=== PATIENT | female | born 2000 | race Caucasian/White ===

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

== ENCOUNTER 2018-05-05 20:54 | Inpatient (IN) | payer MEDICAID ==
[2018-05-05] MEDS ORDERED: Lidocaine 1% 50 ML MDV INJECT ONE (21:59)
[2018-05-05] MEDS ORDERED: Sodium Chloride 0.9% 10 ML Syringe FLUSH PRN (21:59)
[2018-05-05] MEDS ORDERED: Ondansetron 4 MG/2 ML SDV IVPUSH PRN (21:59)
[2018-05-05] MEDS ORDERED: Nalbuphine 20 MG/ML 1 ML Syringe IVPUSH PRN (21:59)
[2018-05-05] MEDS ORDERED: Oxytocin/Lactated Ringers 10 UNIT/1,000 ML BAG IV SCH ×2 (22:00)
--- NOTE | 2018-05-05 22:23 | PCM.LDHP ---
L&D History of Present Illness - General Date of Service: 05/05/18 Admit Problem/Dx: Patient Status Order with Admit Dx/Problem 05/05/18 21:07 Patient Status [ADT] Routine Admission Diagnosis/Problem Admission Diagnosis/Problem Source of Information: Patient History Limitations: Reports: No Limitations - History of Present Illness Introduction:: Patient is a 17 y/o at 38 4/7 wks who presents to L&D with varied concerns of feeling unwell, diarrhea, cramping, and itching of the abdomen/body/hands/ feet. Notes good FM. No headaches, vision changes. 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 In [facility] notes a vaginal delivery of a baby girl in 2015 that was full term. Also notes two losses in 2017. In [facility] system does not have full term delivery noted. Does endorse two losses in 2017 as well. Currently denies prior vaginal delivery) Psychiatric History: Reports: Anxiety, Depression Social & Family History - Family History Family Medical History: Noncontributory - Tobacco Use Smoking Status *Q: Never Smoker - Caffeine Use Caffeine Use: Reports: Coffee, Soda Other Caffeine Use: daily - Alcohol Use Alcohol Use History: No - Recreational Drug Use Recreational Drug Use: No - Living Situation & Occupation Living situation: Reports: Single, with Family Occupation: Employed ([employer]) H&P Review of Systems - Review of Systems: Review Of Systems: See Below General: Reports: No Symptoms Pulmonary: Reports: No Symptoms Cardiovascular: Reports: No Symptoms Gastrointestinal: Reports: No Symptoms Genitourinary: Reports: No Symptoms Musculoskeletal: Reports: No Symptoms Psychiatric: Reports: No Symptoms Neurological: Reports: No Symptoms L&D Exam - Exam Exam: See Below - Vital Signs Weight: 92.986 kg - OB Specific Contraction Intensity: Irritability Movement: Active Heart Tones: Present Heart Tones per Min: 145 Heart Rate (FHR) Variability: Moderate (6-25 bmp) Presentation: Vertex - Muñoz Score Muñoz Score Cervix Position: Midposition Muñoz Score Consistency: Soft Muñoz Score Effacement: 51-70% Muñoz Score Dilation: 3-4 cm Muñoz Score 's Station: -2 Muñoz Score Total: 8 - Exam General: Alert, Oriented, Cooperative Lungs: Clear to Auscultation, Normal Respiratory Effort Cardiovascular: Regular Rate, Regular Rhythm GI/Abdominal Exam: Soft, Non-Tender Genitourinary: Normal external exam Extremities: Normal Inspection, Pedal Edema Skin: Warm, Dry, Intact - Patient Data Lab Results Last 24 hrs: Laboratory Results - last 24 hr 05/05/18 Range/Units 21:33 Urine Color Yellow (Yellow) Urine Appearance Clear (Clear) Urine pH 6.5 (5.0-8.0) Ur Specific [place] 1.015 (1.005-1.030) Urine Protein 3+ H (Negative) Urine Glucose (UA) Negative (Negative) Urine Ketones Negative (Negative) Urine Occult Blood Negative (Negative) Urine Nitrite Negative (Negative) Urine Bilirubin Negative (Negative) Urine Urobilinogen 0.2 (0.2-1.0) Ur Leukocyte Esterase 1+ H (Negative) Urine RBC 0-5 (0-5) /hpf Urine WBC 5-10 H (0-5) /hpf Urine WBC Clumps Rare (NOT SEEN) /hpf Ur Epithelial Cells Not Reportable Ur Squamous Epith Cells 5-10 H (0-5) /hpf Urine Bacteria Few (FEW) /hpf Urine Mucus Rare H (FEW) /hpf Result Diagrams: 05/05/18 22:40 05/05/18 22:40 - Problem List (1) 38 weeks gestation of SNOMED Code(s): 25615448 ICD Code: Z3A.38 - 38 WEEKS GESTATION OF Status: Acute Current Visit: Yes (2) Preeclampsia SNOMED Code(s): 841159089 ICD Code: O14.90 - UNSPECIFIED PRE-ECLAMPSIA, UNSPECIFIED TRIMESTER Status : Acute Current Visit: Yes Qualifiers: Trimester: third trimester Qualified Code(s): O14.93 - Unspecified pre- eclampsia, third trimester (3) Solar pruritus SNOMED Code(s): 600927557 ICD Code: L29.9 - PRURITUS, UNSPECIFIED Status: Acute Current Visit: Yes Problem List Initiated/Reviewed/Updated: Yes Orders Last 24hrs: Active Orders 24 hr Category Date Time Status Patient Status [ADT] Routine ADT 05/05/18 21:07 Active Non Stress Test [RC] PER UNIT ROUTINE Care 05/05/18 21:07 Active Vital Signs [RC] PER UNIT ROUTINE Care 05/05/18 21:07 Active Resuscitation Status Routine Resus Stat 05/05/18 21:07 Ordered Assessment/Plan Comment:: 17 y/o at 38 4/7 wks. Multiple mild range BP's. Labs done and normal other than elevated urine protein to creatinine ratio. Will plan IOL. Will start with pitocin and then AROM as able. GBS negative, no need for antibiotics. Pain management per patient preference. Will also order bile acids as patient complaints of itching of palms/soles. Lastly will order UDS given patient confusing Ob/history and several other comments made throughout interview.
[2018-05-05] MEDS: Lactated Ringers 1,000 ML IV SCH (23:30)
[2018-05-06] MEDS ORDERED: ePHEDrine 50 MG/ML SDV IVPUSH PRN (06:48)
[2018-05-06] MEDS ORDERED: fentaNYL 100 MCG/2 ML SDV IVPUSH PRN (06:48)
[2018-05-06] MEDS ORDERED: diphenhydrAMINE 50 MG/ML SDV IVPUSH PRN (06:48)
[2018-05-06] MEDS ORDERED: Ondansetron 4 MG/2 ML SDV IVPUSH PRN (06:48)
[2018-05-06] MEDS ORDERED: fentaNYL 100 MCG/2 ML SDV EPIDUR PRN (06:57)
[2018-05-06] MEDS ORDERED: fentaNYL/Bupivacaine-NS 2 MCG/ML-0.125%/PF 100 ML Bag EPIDUR SCH (07:00)
[2018-05-06] MEDS: Lactated Ringers 1,000 ML IV SCH (07:17)
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
--- NOTE | 2018-05-06 11:31 | PCM.DEL ---
L & D Note - General Info Date of Service: 05/06/18 - Delivery Note Labor: Induced by ARM, Induced by Oxytocin Delivery Outcome: Livebirth Infant Delivery Method: Spontaneous Vaginal Delivery-Single Delivery Mode: Spontaneous Presentation: Right Occiput Anterior (PHONG) Nuchal Cord: Present, Reduced Anesthesia Type: Epidural Amniotic Fluid Description: Clear Episiotomy Type: None Laceration: 2nd Degree, Perineal Suture type: Vicryl Suture size: 2-0 Placenta: Intact, Spontaneous Cord: 3 Vessels Estimated Blood Loss: 200 Resuscitation Needed: Yes : Bulb Syringe, Stimulated, Warmed, Fenton Used, Warmer Used Delivery Comments (Free Text/Narrative):: Patient found to be complete and began pushing. With maternal pushing effort head delivered from PHONG presentation. Nuchal cord present and reduced. With gentle downward traction the shoulders and body delivered. placed on maternal abdomen. Cord clamped and cut. Baby handed to awaiting dynamite reclaimer. Cord blood collected. Placenta allowed time to separate and expelled intact. Inspection of the perineum showed a 2nd degree laceration which was repaired with a 2-0 vicryl in the typical fashion. - General Info Date of Service: 05/06/18 - Patient Data Vitals - Most Recent: Last Vital Signs Temp 37.2 C 05/05/18 22:30 Pulse 87 05/05/18 22:30 Resp 15 05/06/18 07:47 BP 146/89 H 05/05/18 22:30 Pulse Ox 98 05/06/18 07:47 Weight - Most Recent: 92.986 kg Lab Results Last 24 Hours: Laboratory Results - last 24 hr 05/05/18 05/05/18 05/05/18 Range/Units 21:00 21:33 21:33 WBC (3.98-10.04) K/mm3 RBC (3.98-5.22) M/mm3 Hgb (11.2-15.7) gm/L Hct (34.1-44.9) % MCV (79.4-94.8) fl MCH (25.6-32.2) pg MCHC (32.2-35.5) g/dl RDW Std Deviation (36.4-46.3) fL Plt Count (182-369) K/mm3 MPV (9.4-12.3) fl Neut % (Auto) (34.0-71.1) % Lymph % (Auto) (19.3-51.7) % [place] % (Auto) (4.7-12.5) % Eos % (Auto) (0.7-5.8) Baso % (Auto) (0.1-1.2) % Neut # (Auto) (1.56-6.13) K/mm3 Lymph # (Auto) (1.18-3.74) K/mm3 [place] # (Auto) (0.24-0.36) K/mm3 Eos # (Auto) (0.04-0.36) K/mm3 Baso # (Auto) (0.01-0.08) K/mm3 Creatinine (0.55-1.02) mg/dL Est Cr Clr Drug Dosing mL/min Estimated GFR (MDRD) (>60) mL/min AST (15-37) U/L ALT (14-59) U/L Urine Color Yellow (Yellow) Urine Appearance Clear (Clear) Urine pH 6.5 (5.0-8.0) Ur Specific [place] 1.015 (1.005-1.030) Urine Protein 3+ H (Negative) Urine Glucose (UA) Negative (Negative) Urine Ketones Negative (Negative) Urine Occult Blood Negative (Negative) Urine Nitrite Negative (Negative) Urine Bilirubin Negative (Negative) Urine Urobilinogen 0.2 (0.2-1.0) Ur Leukocyte Esterase 1+ H (Negative) Urine RBC 0-5 (0-5) /hpf Urine WBC 5-10 H (0-5) /hpf Urine WBC Clumps Rare (NOT SEEN) /hpf Ur Epithelial Cells Not Reportable Ur Squamous Epith Cells 5-10 H (0-5) /hpf Urine Bacteria Few (FEW) /hpf Urine Mucus Rare H (FEW) /hpf Ur Random Creatinine 54.8 (30.0-125.0) mg/dL U Random Total Protein 130.2 H (0.0-11.8) mg/dL Protein/Creatinin Ratio 2375.9 H (0-149) mg/g Urine Opiates Screen Negative (YFADTW=533) Ur Buprenorphine Scrn Negative (CUTOFF=10) Ur Oxycodone Screen Negative (YUT6RW=604) Urine Methadone Screen Negative (DQCXLR=793) Ur Propoxyphene Screen Negative (RWAOJJ=685) Ur Barbiturates Screen Negative (PGJPOH=683) Ur Tricyclics Screen Negative (SSHNUV=304) Ur Phencyclidine Scrn Negative (CUTOFF=25) Ur Amphetamine Screen Negative (GMYTTW=972) U Methamphetamines Scrn Negative (DFPQED=098) U Benzodiazepines Scrn Negative (XYUXAA=830) U Cocaine Metab Screen Negative (FLWZQX=513) U Marijuana (THC) Screen Negative (CUTOFF=50) 05/05/18 05/05/18 05/05/18 Range/Units 22:40 22:40 22:40 WBC 9.83 (3.98-10.04) K/mm3 RBC 4.33 (3.98-5.22) M/mm3 Hgb 10.2 L (11.2-15.7) gm/L Hct 32.9 L (34.1-44.9) % MCV 76.0 L (79.4-94.8) fl MCH 23.6 L (25.6-32.2) pg MCHC 31.0 L (32.2-35.5) g/dl RDW Std Deviation 41.9 (36.4-46.3) fL Plt Count 284 (182-369) K/mm3 MPV 10.1 (9.4-12.3) fl Neut % (Auto) 67.1 (34.0-71.1) % Lymph % (Auto) 23.8 (19.3-51.7) % [place] % (Auto) 7.4 (4.7-12.5) % Eos % (Auto) 0.8 (0.7-5.8) Baso % (Auto) 0.2 (0.1-1.2) % Neut # (Auto) 6.59 H (1.56-6.13) K/mm3 Lymph # (Auto) 2.34 (1.18-3.74) K/mm3 [place] # (Auto) 0.73 H (0.24-0.36) K/mm3 Eos # (Auto) 0.08 (0.04-0.36) K/mm3 Baso # (Auto) 0.02 (0.01-0.08) K/mm3 Creatinine 0.7 (0.55-1.02) mg/dL Est Cr Clr Drug Dosing 106.93 mL/min Estimated GFR (MDRD) > 60 (>60) mL/min AST 18 (15-37) U/L ALT 17 (14-59) U/L Urine Color (Yellow) Urine Appearance (Clear) Urine pH (5.0-8.0) Ur Specific [place] (1.005-1.030) Urine Protein (Negative) Urine Glucose (UA) (Negative) Urine Ketones (Negative) Urine Occult Blood (Negative) Urine Nitrite (Negative) Urine Bilirubin (Negative) Urine Urobilinogen (0.2-1.0) Ur Leukocyte Esterase (Negative) Urine RBC (0-5) /hpf Urine WBC (0-5) /hpf Urine WBC Clumps (NOT SEEN) /hpf Ur Epithelial Cells Ur Squamous Epith Cells (0-5) /hpf Urine Bacteria (FEW) /hpf Urine Mucus (FEW) /hpf Ur Random Creatinine (30.0-125.0) mg/dL U Random Total Protein (0.0-11.8) mg/dL Protein/Creatinin Ratio (0-149) mg/g Urine Opiates Screen (FDZISH=591) Ur Buprenorphine Scrn (CUTOFF=10) Ur Oxycodone Screen (YMH5MB=876) Urine Methadone Screen (YGKALS=238) Ur Propoxyphene Screen (RNXOVC=801) Ur Barbiturates Screen (ITNQOT=134) Ur Tricyclics Screen (WUTGIY=944) Ur Phencyclidine Scrn (CUTOFF=25) Ur Amphetamine Screen (UJUQKO=307) U Methamphetamines Scrn (XFUZRN=665) U Benzodiazepines Scrn (BOORHP=148) U Cocaine Metab Screen (MSVJWJ=513) U Marijuana (THC) Screen (CUTOFF=50) Med Orders - Current: Current Medications Diphenhydramine HCl (Benadryl) 25 mg IVPUSH Q6H PRN PRN Reason: Pruritis Ephedrine Sulfate (Ephedrine Sulfate) 5 mg IVPUSH ASDIRECTED PRN PRN Reason: Hypotension Fentanyl (Sublimaze) 50 mcg IVPUSH Q5M PRN PRN Reason: Pain Fentanyl (Sublimaze) 100 mcg EPIDUR ONETIME PRN PRN Reason: Pain Last Admin: 05/06/18 07:29 Dose: 100 mcg Fentanyl/Bupivacaine HCl (Uvzknesy-Twguq-Gm 2 Mcg/Ml-0.125%) 100 ml EPIDUR ASDIRECTED THELMA Last Admin: 05/06/18 07:28 Dose: 100 ml Lactated Ringer's (Ringers, Lactated) 1,000 mls @ 100 mls/hr IV ASDIRECTED THELMA Last Admin: 05/06/18 07:17 Dose: 999 mls/hr Oxytocin/Lactated Ringer's (Pitocin In Lr 10 Units/1,000 Ml) 10 unit in 1,000 mls @ 12 mls/hr IV TITRATE THELMA; Protocol Last Titration: 05/06/18 05:37 Dose: 16 munits/min, 96 mls/hr Oxytocin/Lactated Ringer's (Pitocin In Lr 10 Units/1,000 Ml) 10 unit in 1,000 mls @ 500 mls/hr IV .CONTINUOUS THELMA Last Admin: 05/06/18 11:23 Dose: 500 mls/hr Nalbuphine HCl (Nubain) 10 mg IVPUSH Q2H PRN PRN Reason: pain Ondansetron HCl (Zofran) 4 mg IVPUSH Q4H PRN PRN Reason: Nausea/Vomiting Ondansetron HCl (Zofran) 4 mg IVPUSH ONETIME PRN PRN Reason: Nausea/Vomiting Sodium Chloride (Saline Flush) 10 ml FLUSH ASDIRECTED PRN PRN Reason: Keep Vein Open Discontinued Medications Lidocaine HCl (Xylocaine 1%) 50 ml INJECT ONETIME ONE Stop: 05/05/18 22:00 - Problem List & Annotations (1) 38 weeks gestation of SNOMED Code(s): 91466162 Code(s): Z3A.38 - 38 WEEKS GESTATION OF Status: Acute Current Visit: Yes (2) Preeclampsia SNOMED Code(s): 244339179 Code(s): O14.90 - UNSPECIFIED PRE-ECLAMPSIA, UNSPECIFIED TRIMESTER Status: Acute Current Visit: Yes Qualifiers: Trimester: third trimester Qualified Code(s): O14.93 - Unspecified pre- eclampsia, third trimester (3) Solar pruritus SNOMED Code(s): 907522033 Code(s): L29.9 - PRURITUS, UNSPECIFIED Status: Acute Current Visit: Yes (4) Vaginal delivery SNOMED Code(s): 373433580 Code(s): O80 - ENCOUNTER FOR FULL-TERM UNCOMPLICATED DELIVERY Status: Acute Current Visit: Yes - Problem List Review Problem List Initiated/Reviewed/Updated: Yes - My Orders Last 24 Hours: My Active Orders 05/05/18 21:07 Patient Status [ADT] Routine Vital Signs [RC] 09,15,21,03 Resuscitation Status Routine 05/05/18 21:59 Nalbuphine [Nubain] 10 mg IVPUSH Q2H PRN Ondansetron [Zofran] 4 mg IVPUSH Q4H PRN Sodium Chloride 0.9% [Saline Flush] 10 ml FLUSH ASDIRECTED PRN 05/05/18 22:00 Patient Status [ADT] Routine Activity as Tolerated [RC] PFP Communication Order [RC] ASDIRECTED Heart Tones [RC] ASDIRECTED Notify Provider [RC] PFP Notify Provider [RC] PRN Peripheral IV Care [RC] . DIRECTED Lactated Ringers [Ringers, Lactated] 1,000 ml IV ASDIRECTED Oxytocin/Lactated Ringers [Pitocin in LR 10 Units/1,000 ML] 10 unit in 1,000 ml IV .CONTINUOUS Oxytocin/Lactated Ringers [Pitocin in LR 10 Units/1,000 ML] 10 unit in 1,000 ml IV TITRATE Electronic Heart Tones Ext w TOCO [WOMSER] Routine Electronic Heart Tones Internal [WOMSER] Per Unit Routine Peripheral IV Insertion Adult [OM.PC] Routine 05/05/18 22:40 RAPID PLASMA REAGIN,RPR [CHEM] Routine - Assessment Assessment:: 17 y/o now PPD#0 from at 38 5/7 wks - Plan Plan:: * Routine cares * Encourage bottle feeding * Discharge home in 1-2 days
[2018-05-06] MEDS ORDERED: Docusate Sodium 100 MG Cap PO PRN (13:49)
[2018-05-06] MEDS ORDERED: Acetaminophen 325 MG Tab PO PRN (13:49)
[2018-05-06] MEDS ORDERED: Lanolin 100% Cream 7 GM Tube TOP PRN (13:49)
[2018-05-06] MEDS: Witch Hazel Medicated Pads 40/Jar TOP PRN (13:58)
[2018-05-06] MEDS: Benzocaine/Menthol 20%-0.5% Spray 56 GM Canister TOP PRN (13:59)
[2018-05-06] MEDS: Ibuprofen 600 MG Tab PO PRN (14:00)
[2018-05-06] MEDS ORDERED: Bupivacaine 0.25% 10 ML SDV ONE (16:00)
[2018-05-06] MEDS ORDERED: Lidocaine 1.5% with EPINEPHrine 1:200,000 5 ML Amp ONE (16:00)
[2018-05-07] MEDS: Ibuprofen 600 MG Tab PO PRN ×2 (03:46→17:40)
--- NOTE | 2018-05-07 04:27 | PCM.PNPP ---
- General Info Date of Service: 05/07/18 Functional Status: Reports: Pain Controlled, Tolerating Diet, Ambulating, Urinating - Review of Systems General: Reports: No Symptoms Pulmonary: Reports: No Symptoms Cardiovascular: Reports: No Symptoms Gastrointestinal: Reports: No Symptoms Genitourinary: Reports: No Symptoms Musculoskeletal: Reports: No Symptoms Neurological: Reports: No Symptoms - Patient Data Vital Signs - Most Recent: Last Vital Signs Temp 37.3 C 05/06/18 20:05 Pulse 89 05/06/18 20:05 Resp 14 05/06/18 20:05 BP 122/76 05/06/18 20:05 Pulse Ox 98 05/06/18 20:05 Weight - Most Recent: 92.986 kg I&O - Last 24 Hours: Intake & Output 05/06/18 05/06/18 05/07/18 14:59 22:59 06:59 Intake Total 3000 Balance 3000 Lab Results - Last 24 Hours: Laboratory Results - last 24 hr 05/05/18 05/05/18 Range/Units 21:00 22:40 Urine Opiates Screen Negative (FHGSNW=631) Ur Buprenorphine Scrn Negative (CUTOFF=10) Ur Oxycodone Screen Negative (BUE5FY=405) Urine Methadone Screen Negative (RLXPCQ=563) Ur Propoxyphene Screen Negative (RDMYHH=610) Ur Barbiturates Screen Negative (UJKVIN=897) Ur Tricyclics Screen Negative (NKGADS=508) Ur Phencyclidine Scrn Negative (CUTOFF=25) Ur Amphetamine Screen Negative (PGGPSB=937) U Methamphetamines Scrn Negative (OZZGYE=583) U Benzodiazepines Scrn Negative (FGKBVG=374) U Cocaine Metab Screen Negative (OYWIBS=034) U Marijuana (THC) Screen Negative (CUTOFF=50) RPR Non-reactive (NONREACTIVE) Med Orders - Current: Current Medications Acetaminophen (Tylenol) 650 mg PO Q4H PRN PRN Reason: mild pain or fever Last Admin: 05/07/18 03:48 Dose: 650 mg Benzocaine/Menthol (Dermoplast Pain Relief [place]) 0 gm TOP ASDIRECTED PRN PRN Reason: Perineal Comfort Measure Last Admin: 05/06/18 13:59 Dose: 1 spray Docusate Sodium (Colace) 100 mg PO BID PRN PRN Reason: Constipation Emollient Ointment (Lansinoh Hpa) 0 gm TOP ASDIRECTED PRN PRN Reason: Sore Nipples Ibuprofen (Motrin) 600 mg PO Q6H PRN PRN Reason: Mild pain or fever Last Admin: 05/07/18 03:46 Dose: 600 mg Witch Theodora (Tucks) 1 pad TOP ASDIRECTED PRN PRN Reason: Pain Last Admin: 05/06/18 13:58 Dose: 1 pad Discontinued Medications Diphenhydramine HCl (Benadryl) 25 mg IVPUSH Q6H PRN PRN Reason: Pruritis Ephedrine Sulfate (Ephedrine Sulfate) 5 mg IVPUSH ASDIRECTED PRN PRN Reason: Hypotension Fentanyl (Sublimaze) 50 mcg IVPUSH Q5M PRN PRN Reason: Pain Fentanyl (Sublimaze) 100 mcg EPIDUR ONETIME PRN PRN Reason: Pain Last Admin: 05/06/18 07:29 Dose: 100 mcg Fentanyl/Bupivacaine HCl (Nllkrhot-Ywdbw-Jr 2 Mcg/Ml-0.125%) 100 ml EPIDUR ASDIRECTED THELMA Last Admin: 05/06/18 07:28 Dose: 100 ml Lactated Ringer's (Ringers, Lactated) 1,000 mls @ 100 mls/hr IV ASDIRECTED THELMA Last Admin: 05/06/18 07:17 Dose: 999 mls/hr Oxytocin/Lactated Ringer's (Pitocin In Lr 10 Units/1,000 Ml) 10 unit in 1,000 mls @ 12 mls/hr IV TITRATE THELMA; Protocol Last Titration: 05/06/18 05:37 Dose: 16 munits/min, 96 mls/hr Oxytocin/Lactated Ringer's (Pitocin In Lr 10 Units/1,000 Ml) 10 unit in 1,000 mls @ 500 mls/hr IV .CONTINUOUS THELMA Last Admin: 05/06/18 11:23 Dose: 500 mls/hr Lidocaine HCl (Xylocaine 1%) 50 ml INJECT ONETIME ONE Stop: 05/05/18 22:00 Last Admin: 05/06/18 22:53 Dose: Not Given Nalbuphine HCl (Nubain) 10 mg IVPUSH Q2H PRN PRN Reason: pain Ondansetron HCl (Zofran) 4 mg IVPUSH Q4H PRN PRN Reason: Nausea/Vomiting Ondansetron HCl (Zofran) 4 mg IVPUSH ONETIME PRN PRN Reason: Nausea/Vomiting Sodium Chloride (Saline Flush) 10 ml FLUSH ASDIRECTED PRN PRN Reason: Keep Vein Open - Infant Interaction Disposition, : in Room with Family Interaction: Holding Infant Infant Feeding: Bottle Fed Support Person: Mother, Significant Other - Recovery Exam Fundal Tone: Firm Fundal Level: 1 Fingerbreadths Below Umbilicus Fundal Placement: Midline Lochia Amount: Small Lochia Color: Rubra/Red Perineum Description: Other (see below) Other Perinuem Description: 2nd deg lac with repair Episiotomy/Laceration: Approximated Bladder Status: Voiding Urinary Elimination: Voided - Exam General: Alert, Oriented, Cooperative GI/Abdominal Exam: Soft, Non-Tender Extremities: Normal Inspection Skin: Warm, Dry, Intact - Problem List & Annotations (1) 38 weeks gestation of SNOMED Code(s): 67044969 Code(s): Z3A.38 - 38 WEEKS GESTATION OF Status: Acute Current Visit: Yes (2) Preeclampsia SNOMED Code(s): 559041491 Code(s): O14.90 - UNSPECIFIED PRE-ECLAMPSIA, UNSPECIFIED TRIMESTER Status: Acute Current Visit: Yes Qualifiers: Trimester: third trimester Qualified Code(s): O14.93 - Unspecified pre- eclampsia, third trimester (3) Solar pruritus SNOMED Code(s): 664959771 Code(s): L29.9 - PRURITUS, UNSPECIFIED Status: Acute Current Visit: Yes (4) Vaginal delivery SNOMED Code(s): 425115112 Code(s): O80 - ENCOUNTER FOR FULL-TERM UNCOMPLICATED DELIVERY Status: Acute Current Visit: Yes - Problem List Review Problem List Initiated/Reviewed/Updated: Yes - My Orders Last 24 Hours: My Active Orders 05/06/18 13:49 Activity as Tolerated [RC] PER UNIT ROUTINE Vital Signs [RC] 03,09,15,21 Acetaminophen [Tylenol] 650 mg PO Q4H PRN Benzocaine/Menthol [Dermoplast Pain Relief [place]] See Dose Instructions TOP ASDIRECTED PRN Docusate Sodium [Colace] 100 mg PO BID PRN Ibuprofen [Motrin] 600 mg PO Q6H PRN Lanolin [Lansinoh HPA] See Dose Instructions TOP ASDIRECTED PRN Witch Theodora [Tucks] 1 pad TOP ASDIRECTED PRN Assess Lochia [WOMSER] Per Unit Routine Assess Uterine Involution [WOMSER] Per Unit Routine Breast Pump [WOMSER] Per Unit Routine Heat Therapy [OM.PC] PRN Ice Therapy [OM.PC] Per Unit Routine Perineal Care [OM.PC] Per Unit Routine Peripheral IV Discontinue [OM.PC] Routine Sitz Bath [OM.PC] Per Unit Routine 05/06/18 Lunch Regular Diet [DIET] 05/07/18 13:49 Heat Therapy [OM.PC] PRN - Assessment Assessment:: 17 y/o now PPD#1 from at 38 5/7 wks - Plan Plan:: * Routine cares * Encourage bottle feeding * Discharge home likely tomorrow
--- NOTE | 2018-05-07 10:06 | PCM48HPAN ---
Post Anesthesia Note - EVALUATION WITHIN 48HRS OF ANESTHETIC Vital Signs in Normal Range: Yes Patient Participated in Evaluation: Yes Respiratory Function Stable: Yes Airway Patent: Yes Cardiovascular Function Stable: Yes Hydration Status Stable: Yes Pain Control Satisfactory: Yes Nausea and Vomiting Control Satisfactory: Yes Mental Status Recovered: Yes
[2018-05-08] MEDS: Ibuprofen 600 MG Tab PO PRN (03:37)
--- NOTE | 2018-05-08 06:49 | PCM.PNPP ---
- General Info Date of Service: 05/08/18 Functional Status: Reports: Pain Controlled, Tolerating Diet, Ambulating, Urinating - Review of Systems General: Reports: No Symptoms Pulmonary: Reports: No Symptoms Cardiovascular: Reports: No Symptoms Gastrointestinal: Reports: No Symptoms Genitourinary: Reports: No Symptoms Musculoskeletal: Reports: No Symptoms Neurological: Reports: No Symptoms - Patient Data Vital Signs - Most Recent: Last Vital Signs Temp 37.1 C 05/08/18 04:59 Pulse 99 05/08/18 03:16 Resp 14 05/08/18 03:16 BP 126/59 L 05/08/18 03:16 Pulse Ox 98 05/08/18 03:16 Weight - Most Recent: 92.986 kg I&O - Last 24 Hours: Intake & Output 05/07/18 05/07/18 05/08/18 14:59 22:59 06:59 Intake Total 120 300 Balance 120 300 Med Orders - Current: Current Medications Acetaminophen (Tylenol) 650 mg PO Q4H PRN PRN Reason: mild pain or fever Last Admin: 05/07/18 03:48 Dose: 650 mg Benzocaine/Menthol (Dermoplast Pain Relief [place]) 0 gm TOP ASDIRECTED PRN PRN Reason: Perineal Comfort Measure Last Admin: 05/06/18 13:59 Dose: 1 spray Docusate Sodium (Colace) 100 mg PO BID PRN PRN Reason: Constipation Last Admin: 05/08/18 03:37 Dose: 100 mg Emollient Ointment (Lansinoh Hpa) 0 gm TOP ASDIRECTED PRN PRN Reason: Sore Nipples Ibuprofen (Motrin) 600 mg PO Q6H PRN PRN Reason: Mild pain or fever Last Admin: 05/08/18 03:37 Dose: 600 mg Witch Theodora (Tucks) 1 pad TOP ASDIRECTED PRN PRN Reason: Pain Last Admin: 05/06/18 13:58 Dose: 1 pad Discontinued Medications Bupivacaine HCl (Sensorcaine-Mpf 0.25%) 10 ml .ROUTE .STK-MED ONE Stop: 05/06/18 16:01 Diphenhydramine HCl (Benadryl) 25 mg IVPUSH Q6H PRN PRN Reason: Pruritis Ephedrine Sulfate (Ephedrine Sulfate) 5 mg IVPUSH ASDIRECTED PRN PRN Reason: Hypotension Fentanyl (Sublimaze) 50 mcg IVPUSH Q5M PRN PRN Reason: Pain Fentanyl (Sublimaze) 100 mcg EPIDUR ONETIME PRN PRN Reason: Pain Last Admin: 05/06/18 07:29 Dose: 100 mcg Fentanyl/Bupivacaine HCl (Lqscbwdh-Hyfis-Nm 2 Mcg/Ml-0.125%) 100 ml EPIDUR ASDIRECTED THELMA Last Admin: 05/06/18 07:28 Dose: 100 ml Lactated Ringer's (Ringers, Lactated) 1,000 mls @ 100 mls/hr IV ASDIRECTED THELMA Last Admin: 05/06/18 07:17 Dose: 999 mls/hr Oxytocin/Lactated Ringer's (Pitocin In Lr 10 Units/1,000 Ml) 10 unit in 1,000 mls @ 12 mls/hr IV TITRATE THELMA; Protocol Last Titration: 05/06/18 05:37 Dose: 16 munits/min, 96 mls/hr Oxytocin/Lactated Ringer's (Pitocin In Lr 10 Units/1,000 Ml) 10 unit in 1,000 mls @ 500 mls/hr IV .CONTINUOUS THELMA Last Admin: 05/06/18 11:23 Dose: 500 mls/hr Lidocaine HCl (Xylocaine 1%) 50 ml INJECT ONETIME ONE Stop: 05/05/18 22:00 Last Admin: 05/06/18 22:53 Dose: Not Given Lidocaine/Epinephrine (Xylocaine-Mpf 1.5% W/Epinephrine 1:200,000) 5 ml .ROUTE .STK-MED ONE Stop: 05/06/18 16:01 Nalbuphine HCl (Nubain) 10 mg IVPUSH Q2H PRN PRN Reason: pain Ondansetron HCl (Zofran) 4 mg IVPUSH Q4H PRN PRN Reason: Nausea/Vomiting Ondansetron HCl (Zofran) 4 mg IVPUSH ONETIME PRN PRN Reason: Nausea/Vomiting Sodium Chloride (Saline Flush) 10 ml FLUSH ASDIRECTED PRN PRN Reason: Keep Vein Open - Interaction Disposition, : Graff in Room with Family Interaction: Holding Infant Infant Feeding: Bottle Fed Infant Support Person: Mother, Significant Other - Recovery Exam Fundal Tone: Firm Fundal Level: 1 Fingerbreadths Below Umbilicus Fundal Placement: Midline Lochia Amount: Small Lochia Color: Rubra/Red Perineum Description: Other (see below) Other Perinuem Description: 2nd degree lac with repair Episiotomy/Laceration: None Bladder Status: Voiding Urinary Elimination: Voided - Exam General: Alert, Oriented, Cooperative GI/Abdominal Exam: Soft, Non-Tender Extremities: Normal Inspection - Problem List & Annotations (1) 38 weeks gestation of SNOMED Code(s): 58050171 Code(s): Z3A.38 - 38 WEEKS GESTATION OF Status: Acute (2) Preeclampsia SNOMED Code(s): 961816051 Code(s): O14.90 - UNSPECIFIED PRE-ECLAMPSIA, UNSPECIFIED TRIMESTER Status: Acute Qualifiers: Trimester: third trimester Qualified Code(s): O14.93 - Unspecified pre- eclampsia, third trimester (3) Solar pruritus SNOMED Code(s): 374282120 Code(s): L29.9 - PRURITUS, UNSPECIFIED Status: Acute (4) Vaginal delivery SNOMED Code(s): 959571224 Code(s): O80 - ENCOUNTER FOR FULL-TERM UNCOMPLICATED DELIVERY Status: Acute - Problem List Review Problem List Initiated/Reviewed/Updated: Yes - My Orders Last 24 Hours: My Active Orders 05/07/18 13:49 Heat Therapy [OM.PC] PRN 05/08/18 06:49 Ready for Discharge [RC] PER UNIT ROUTINE - Assessment Assessment:: 17 y/o now PPD#2 from at 38 5/7 wks - Plan Plan:: * Routine cares * Encourage bottle feeding * BP's have been normal to mild range. Will have patient follow up in 1 week for BP check * Discharge home today
--- NOTE | 2018-05-08 06:50 | PCM.DCSUM1 ---
Discharge Summary - Discharge Data Discharge Date: 05/08/18 Discharge Disposition: Home, Self-Care 01 Condition: Good - Discharge Diagnosis/Problem(s) (1) 38 weeks gestation of SNOMED Code(s): 54053695 ICD Code: Z3A.38 - 38 WEEKS GESTATION OF Status: Acute (2) Preeclampsia SNOMED Code(s): 366077665 ICD Code: O14.90 - UNSPECIFIED PRE-ECLAMPSIA, UNSPECIFIED TRIMESTER Status : Acute Qualifiers: Trimester: third trimester Qualified Code(s): O14.93 - Unspecified pre- eclampsia, third trimester (3) Solar pruritus SNOMED Code(s): 040487538 ICD Code: L29.9 - PRURITUS, UNSPECIFIED Status: Acute (4) Vaginal delivery SNOMED Code(s): 140698033 ICD Code: O80 - ENCOUNTER FOR FULL-TERM UNCOMPLICATED DELIVERY Status: Acute - Patient Summary/Data Complications: None Consults: None Recommended Follow-up Testing/Procedures: Follow up in 1 week for BP check Hospital Course: 17 y/o at 38 4/7 wks who presented to L&D with several varied complaints. She was found to have multiple mild range BP's. For this reason she was advised to stay for IOL. This was done wtih pitocin and eventual AROM. She progressed well and underwent an uncomplicated . See delivery note. she did well and BP's remained normal to mild range. She was discharged home on PPD#2 - Patient Instructions Diet: Regular Diet as Tolerated Activity: As Tolerated Activity, Other: Pelvic Rest for 6 weeeks Driving: May Drive Today Showering/Bathing: May Shower Showering/Bathing, Other: May Bathe Notify Provider of: Fever, Increased Pain, Swelling and Redness, Drainage, Nausea and/or Vomiting - Discharge Plan *PRESCRIPTION DRUG MONITORING PROGRAM REVIEWED*: Not Applicable *COPY OF PRESCRIPTION DRUG MONITORING REPORT IN PATIENT MUNA: Not Applicable Home Medications: Home Meds [id number]/FA/Omega3/Dha/Fish Oil [ Gummies] 1 tab PO DAILY 01/16/18 [ History] Docusate Sodium [Colace] 100 mg PO BID PRN cap 05/08/18 [Rx] Ibuprofen [Motrin] 600 mg PO Q6H PRN tablet 05/08/18 [Rx] Patient Handouts: What You Need to Know About Electronic Cigarettes, Vaginal Delivery, Care After Referrals: Costa Kaminski MD [Physician] - (1-2 weeks for BP check / PP check ) - Discharge Summary/Plan Comment DC Time >30 min.: No - Patient Data Vitals - Most Recent: Last Vital Signs Temp 37.1 C 05/08/18 04:59 Pulse 99 05/08/18 03:16 Resp 14 05/08/18 03:16 BP 126/59 L 05/08/18 03:16 Pulse Ox 98 05/08/18 03:16 Weight - Most Recent: 92.986 kg I&O - Last 24 hours: Intake & Output 05/07/18 05/07/18 05/08/18 14:59 22:59 06:59 Intake Total 120 300 Balance 120 300 Med Orders - Current: Current Medications Acetaminophen (Tylenol) 650 mg PO Q4H PRN PRN Reason: mild pain or fever Last Admin: 05/07/18 03:48 Dose: 650 mg Benzocaine/Menthol (Dermoplast Pain Relief [place]) 0 gm TOP ASDIRECTED PRN PRN Reason: Perineal Comfort Measure Last Admin: 05/06/18 13:59 Dose: 1 spray Docusate Sodium (Colace) 100 mg PO BID PRN PRN Reason: Constipation Last Admin: 05/08/18 03:37 Dose: 100 mg Emollient Ointment (Lansinoh Hpa) 0 gm TOP ASDIRECTED PRN PRN Reason: Sore Nipples Ibuprofen (Motrin) 600 mg PO Q6H PRN PRN Reason: Mild pain or fever Last Admin: 05/08/18 03:37 Dose: 600 mg Witch Theodora (Tucks) 1 pad TOP ASDIRECTED PRN PRN Reason: Pain Last Admin: 05/06/18 13:58 Dose: 1 pad Discontinued Medications Bupivacaine HCl (Sensorcaine-Mpf 0.25%) 10 ml .ROUTE .STK-MED ONE Stop: 05/06/18 16:01 Diphenhydramine HCl (Benadryl) 25 mg IVPUSH Q6H PRN PRN Reason: Pruritis Ephedrine Sulfate (Ephedrine Sulfate) 5 mg IVPUSH ASDIRECTED PRN PRN Reason: Hypotension Fentanyl (Sublimaze) 50 mcg IVPUSH Q5M PRN PRN Reason: Pain Fentanyl (Sublimaze) 100 mcg EPIDUR ONETIME PRN PRN Reason: Pain Last Admin: 05/06/18 07:29 Dose: 100 mcg Fentanyl/Bupivacaine HCl (Bxqgedny-Vrqsd-Du 2 Mcg/Ml-0.125%) 100 ml EPIDUR ASDIRECTED THELMA Last Admin: 05/06/18 07:28 Dose: 100 ml Lactated Ringer's (Ringers, Lactated) 1,000 mls @ 100 mls/hr IV ASDIRECTED THELMA Last Admin: 05/06/18 07:17 Dose: 999 mls/hr Oxytocin/Lactated Ringer's (Pitocin In Lr 10 Units/1,000 Ml) 10 unit in 1,000 mls @ 12 mls/hr IV TITRATE THELMA; Protocol Last Titration: 05/06/18 05:37 Dose: 16 munits/min, 96 mls/hr Oxytocin/Lactated Ringer's (Pitocin In Lr 10 Units/1,000 Ml) 10 unit in 1,000 mls @ 500 mls/hr IV .CONTINUOUS THELMA Last Admin: 05/06/18 11:23 Dose: 500 mls/hr Lidocaine HCl (Xylocaine 1%) 50 ml INJECT ONETIME ONE Stop: 05/05/18 22:00 Last Admin: 05/06/18 22:53 Dose: Not Given Lidocaine/Epinephrine (Xylocaine-Mpf 1.5% W/Epinephrine 1:200,000) 5 ml .ROUTE .STK-MED ONE Stop: 05/06/18 16:01 Nalbuphine HCl (Nubain) 10 mg IVPUSH Q2H PRN PRN Reason: pain Ondansetron HCl (Zofran) 4 mg IVPUSH Q4H PRN PRN Reason: Nausea/Vomiting Ondansetron HCl (Zofran) 4 mg IVPUSH ONETIME PRN PRN Reason: Nausea/Vomiting Sodium Chloride (Saline Flush) 10 ml FLUSH ASDIRECTED PRN PRN Reason: Keep Vein Open
[2018-05-08] MEDS: Witch Hazel Medicated Pads 40/Jar TOP PRN (08:28)
[2018-05-08] MEDS: Benzocaine/Menthol 20%-0.5% Spray 56 GM Canister TOP PRN (08:28)
[2018-05-08 10:09] VITALS: BP 131/90
== END 2018-05-08 10:00 | disposition home or self-care (01) | DRG 806 ==
LOC: JD.OBCHECK 20:54 → JD.OB 20:58 → JD.OBCHECK 22:00 → JD.OB 22:00 → OBSVTOIN 05-06 11:00 → JD.OB 05-06 11:01
PROVIDERS: ADMIT Obstetrics & Gynecology; ATTEND Obstetrics & Gynecology
PROC: 10907ZC Drainage of Amniotic Fluid, Therapeutic from Products of Conception, Via Natural or Artificial Opening (ICD-10-PCS; principal; 2018-05-06)
PROC: 3E033VJ Introduction of Other Hormone into Peripheral Vein, Percutaneous Approach (ICD-10-PCS; principal; 2018-05-06)
PROC: 6A550ZT Pheresis of Cord Blood Stem Cells, Single (ICD-10-PCS; principal; 2018-05-06)
PROC: 10E0XZZ Delivery of Products of Conception, External Approach (ICD-10-PCS; principal; 2018-05-06)
PROC: 0KQM0ZZ Repair Perineum Muscle, Open Approach (ICD-10-PCS; principal; 2018-05-06)
PROC: 00HU33Z Insertion of Infusion Device into Spinal Canal, Percutaneous Approach (ICD-10-PCS; 2018-05-06)
PROC: 3E0R3BZ Introduction of Anesthetic Agent into Spinal Canal, Percutaneous Approach (ICD-10-PCS; 2018-05-06)
DX: O14.94 Unspecified pre-eclampsia, complicating childbirth (principal); O99.354 Diseases of the nervous system complicating childbirth; Z37.0 Single live birth; G43.909 Migraine, unspecified, not intractable, without status migrainosus; Z3A.38 38 weeks gestation of pregnancy; O69.81X0 Labor and delivery complicated by cord around neck, without compression, not applicable or unspecified; O70.1 Second degree perineal laceration during delivery; O77.0 Labor and delivery complicated by meconium in amniotic fluid; O99.62 Diseases of the digestive system complicating childbirth; K21.9 Gastro-esophageal reflux disease without esophagitis; O99.344 Other mental disorders complicating childbirth; F41.9 Anxiety disorder, unspecified; F32.9 Major depressive disorder, single episode, unspecified; O99.72 Diseases of the skin and subcutaneous tissue complicating childbirth; L29.8 Other pruritus; Z87.440 Personal history of urinary (tract) infections; Z91.018 Allergy to other foods; Z87.11 Personal history of peptic ulcer disease
CPT/HCPCS: 01967; 36415; 51702; 59025; 59409; 80306; 81001; 82565; 82570; 84156; 84450; 84460; 85025; 86592; A9270-GY; J2590; J3010; J3490; J7120

== ENCOUNTER 2018-08-03 12:16 | Emergency (ER) | payer MEDICAID ==
[2018-08-03 12:30] VITALS: BP 124/78
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
== END 2018-08-03 13:45 | disposition home or self-care (01) ==
LOC: JD.ED 12:16
DX: N76.4 Abscess of vulva (principal); Z88.6 Allergy status to analgesic agent; Z91.018 Allergy to other foods
CPT/HCPCS: 99282; 99283

== ENCOUNTER 2018-09-26 19:16 | Emergency (ER) | payer MEDICAID ==
[2018-09-26 19:55] VITALS: BP 127/71
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
[2018-09-26] MEDS ORDERED: Ibuprofen 600 MG Tab PO ONE (21:15)
--- NOTE | 2018-09-27 08:11 | CR ---
Right knee: Four views of the right knee were obtained. Comparison: No previous knee exam. No joint effusion is seen. Medial and lateral joint compartments are maintained in height. No fracture, dislocation or other bony abnormality is seen. Impression: 1. No abnormality is identified on right knee exam. Diagnostic code #1
== END 2018-09-26 22:12 | disposition home or self-care (01) ==
LOC: JD.ED 19:16
DX: S83.91XA Sprain of unspecified site of right knee, initial encounter (principal); Z91.018 Allergy to other foods; Z79.82 Long term (current) use of aspirin; X50.1XXA Overexertion from prolonged static or awkward postures, initial encounter
CPT/HCPCS: 73564; 99283; A9270; 99282

== ENCOUNTER 2018-09-29 12:09 | Emergency (ER) | payer SELFPAY ==
[2018-09-29 12:25] VITALS: BP 131/78
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
[2018-09-29] MEDS ORDERED: Ketorolac 60 MG/2 ML SDV IM ONE (12:42)
== END 2018-09-29 13:01 | disposition home or self-care (01) ==
LOC: JD.ED 12:09
DX: K02.9 Dental caries, unspecified (principal); Z88.6 Allergy status to analgesic agent; Z91.02 Food additives allergy status
CPT/HCPCS: 96372; 99282; J1885; 99283

== ENCOUNTER 2018-10-10 09:56 | Emergency (ER) | payer SELFPAY ==
[2018-10-10 10:15] VITALS: BP 136/77
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
[2018-10-10] MEDS ORDERED: Ketorolac 60 MG/2 ML SDV IM ONE (10:34)
== END 2018-10-10 10:43 | disposition home or self-care (01) ==
LOC: JD.ED 09:56
DX: K02.9 Dental caries, unspecified (principal); Z88.6 Allergy status to analgesic agent; Z91.018 Allergy to other foods
CPT/HCPCS: 96372; 99282; J1885

== ENCOUNTER 2018-10-12 15:25 | Emergency (ER) | payer SELFPAY ==
[2018-10-12 15:52] VITALS: BP 150/124
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
[2018-10-12] MEDS ORDERED: Ketorolac 60 MG/2 ML SDV IM ONE (16:26)
[2018-10-12] MEDS ORDERED: Ondansetron 4 MG Tab.DIS PO ONE (16:26)
== END 2018-10-12 17:17 | disposition home or self-care (01) ==
LOC: JD.ED 15:25
DX: K02.9 Dental caries, unspecified (principal); R11.10 Vomiting, unspecified; Z88.8 Allergy status to other drugs, medicaments and biological substances; Z91.018 Allergy to other foods; Z79.899 Other long term (current) drug therapy
CPT/HCPCS: 96372; 99283; A9270; J1885

== ENCOUNTER 2018-11-21 18:53 | Emergency (ER) | payer SELFPAY ==
[2018-11-21 19:12] VITALS: BP 125/80; PULSE 89
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
== END 2018-11-21 19:56 | disposition home or self-care (01) ==
LOC: JD.ED 18:53
DX: H60.501 Unspecified acute noninfective otitis externa, right ear (principal); Z88.6 Allergy status to analgesic agent; Z91.018 Allergy to other foods
CPT/HCPCS: 99282; 99283

== ENCOUNTER 2019-02-02 19:14 | Emergency (ER) | payer OTHER ==
[2019-02-02 19:36] VITALS: BP 124/78; PULSE 88
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
== END 2019-02-02 21:10 | disposition home or self-care (01) ==
LOC: JD.ED 19:14
DX: J06.9 Acute upper respiratory infection, unspecified (principal); Z91.018 Allergy to other foods; Z88.6 Allergy status to analgesic agent
CPT/HCPCS: 81001; 81025; 87081; 87086; 87430; 87804; 99281; 99283

== ENCOUNTER 2019-02-25 15:12 | Emergency (ER) | payer SELFPAY ==
[2019-02-25 15:31] VITALS: BP 124/66; PULSE 89
[2019-02-25] MEDS ORDERED: Lidocaine 1% 10 ML MDV ONE (15:48)
[2019-02-25] MEDS ORDERED: Lidocaine 1% 10 ML MDV INJECT ONE (15:49)
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
[2019-02-25] MEDS ORDERED: Sulfamethoxazole/Trimethoprim 800-160 MG Tab PO ONE (16:27)
== END 2019-02-25 17:04 | disposition home or self-care (01) ==
LOC: JD.ED 15:12
DX: L02.211 Cutaneous abscess of abdominal wall (principal); Z88.8 Allergy status to other drugs, medicaments and biological substances; Z91.018 Allergy to other foods
CPT/HCPCS: 10061; 81025; 87070; 87077; 87186; 99283; A9270; J2001

== ENCOUNTER 2019-05-17 22:53 | Emergency (ER) | payer SELFPAY ==
[2019-05-17 23:08] VITALS: BP 128/78; PULSE 86
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
== END 2019-05-18 01:05 | disposition home or self-care (01) ==
LOC: JD.ED 22:53
DX: N93.9 Abnormal uterine and vaginal bleeding, unspecified (principal); N30.01 Acute cystitis with hematuria; D50.9 Iron deficiency anemia, unspecified; Z91.018 Allergy to other foods
CPT/HCPCS: 36415; 81001; 84703; 85025; 99283; 99284

== ENCOUNTER 2019-09-27 16:00 | Emergency (ER) | payer SELFPAY ==
[2019-09-27 17:03] VITALS: BP 132/92; PULSE 110
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
== END 2019-09-27 20:30 | disposition home or self-care (01) ==
LOC: JD.ED 16:00
DX: J06.9 Acute upper respiratory infection, unspecified (principal); Z91.018 Allergy to other foods; Z20.828 Contact with and (suspected) exposure to other viral communicable diseases
CPT/HCPCS: 36415; 84702; 99282; 99283; U0002

== ENCOUNTER 2020-01-05 11:30 | Emergency (ER) | payer SELFPAY ==
[2020-01-05 11:45] VITALS: BP 125/83; PULSE 95
[2020-01-05] MEDS ORDERED: Sodium Chloride 0.9% 10 ML Syringe FLUSH PRN (11:57)
[2020-01-05] MEDS ORDERED: Ondansetron 4 MG/2 ML SDV IVPUSH ONE (12:00)
[2020-01-05] MEDS ORDERED: Sodium Chloride 0.9% 1,000 ML IV ONE (12:00)
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
--- NOTE | 2020-01-06 13:08 | US ---
PROCEDURE INFORMATION: Exam: US , Transvaginal Exam date and time: 01/05/2020 12:26 PM Age: 19 years old Clinical indication: Lmp or gestational age (in weeks): Working joselyn not provided; Antepartum complications; Other: Abd cramping; TECHNIQUE: Imaging protocol: Real-time transvaginal obstetrical ultrasound of the maternal pelvis and a first trimester with image documentation. Transvaginal imaging was used for better evaluation of the fetus, adnexa, and/or cervix. COMPARISON: US OB 2 Or 3 Tri Sgl 1st Gest 12/26/2017 2:17 PM FINDINGS: BIOMETRY: Gestational age (AUA): A single live intrauterine is identified with mean sac diameter estimated the gestational age to be 6 weeks 5 days. Yolk sac is identified. heart tones are present at 136 bpm. [place]-rump length estimates the gestational age to be 7 weeks 0 days. MATERNAL: Right adnexa: The right ovary measures 3.1 x 1.7 x 2.8 cm and contains a 1.9 x 1.9 x 1.8 cm corpus luteum cyst. Left adnexa: The left ovary is normal in appearance measuring 3.1 x 1.4 x 2.2 cm. IMPRESSION: 1. Single live intrauterine identified. [place]-rump length estimates the gestational age to be 7 weeks 0 days. 2. 1.9 cm corpus luteum cyst on the right. Thank you for allowing us to participate in the care of your patient. Dictated and Authenticated by: Florentin Daniels MD 01/05/2020 2:29 PM Central Time ([place] & [place]) [facility] HOSPITALFatimah
--- NOTE | 2020-01-06 13:14 | US ---
PROCEDURE INFORMATION: Exam: US Abdomen, Limited; Appendix Exam date and time: 01/05/2020 12:53 PM Age: 19 years old Clinical indication: Abdominal pain; Other: RLQ; TECHNIQUE: Imaging protocol: US abdomen. Real time ultrasound with image documentation. Limited exam focused on the appendix. COMPARISON: CT Abdomen Pelvis w Cont 09/07/2016 2:23 AM FINDINGS: Appendix: The appendix is not seen as a discrete structure due to overlying bowel gas. No secondary signs of appendicitis identified. IMPRESSION: The appendix could not be visualized. No secondary signs of appendicitis are identified. However, appendicitis cannot be entirely excluded. Thank you for allowing us to participate in the care of your patient. Dictated and Authenticated by: Florentin Daniels MD 01/05/2020 2:31 PM Central Time ([place] & [place]) [facility]
== END 2020-01-05 14:15 | disposition home or self-care (01) ==
LOC: JD.ED 11:30
DX: O99.891 Other specified diseases and conditions complicating pregnancy (principal); R10.31 Right lower quadrant pain; R10.32 Left lower quadrant pain; O21.9 Vomiting of pregnancy, unspecified; O99.211 Obesity complicating pregnancy, first trimester; Z91.018 Allergy to other foods; Z3A.01 Less than 8 weeks gestation of pregnancy
CPT/HCPCS: 36415; 76705; 76817; 80053; 84702; 85025; 86140; 86900; 86901; 96374; 99284; J2405; J7030

== ENCOUNTER 2020-08-02 07:05 | Inpatient (IN) | payer MEDICAID ==
[~2020-08-02 07:05] MED LIST: Bupivacaine 0.25% 10 ML SDV ONE; ePHEDrine 50 MG/ML SDV ONE
[2020-08-02] MEDS ORDERED: Nalbuphine 10 MG/1 ML Vial IVPUSH PRN (07:28)
[2020-08-02] MEDS ORDERED: Ondansetron 4 MG/2 ML SDV IVPUSH PRN ×2 (07:28→10:59)
[2020-08-02] MEDS ORDERED: Calcium Carbonate 500 MG Tab.Chew PO PRN (07:28)
[2020-08-02] MEDS ORDERED: Sodium Chloride 0.9% 10 ML Syringe FLUSH PRN (07:28)
[2020-08-02] MEDS ORDERED: Oxytocin/Lactated Ringers 10 UNIT/1,000 ML BAG IV SCH ×2 (07:30→15:52)
[2020-08-02] MEDS: Lactated Ringers 1,000 ML IV SCH ×3 (07:59→11:54)
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
[2020-08-02] MEDS ORDERED: ePHEDrine 50 MG/ML SDV IVPUSH PRN (10:59)
[2020-08-02] MEDS ORDERED: fentaNYL 100 MCG/2 ML SDV EPIDUR PRN (10:59)
[2020-08-02] MEDS ORDERED: Bupivacaine/fentaNYL/NS 100 ML Bag EPIDUR SCH (11:00)
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
[2020-08-02] MEDS ORDERED: fentaNYL 100 MCG/2 ML SDV ONE ×2 (11:08→19:12)
--- NOTE | 2020-08-02 15:33 | PCM.DEL ---
L & D Note - General Info Date of Service: 08/02/20 Mother's Due Date: 08/23/20 - Delivery Note Labor: Augmented by ARM, Augmented by Oxytocin Delivery Outcome: Livebirth Presentation: Right Occiput Anterior (PHONG) Nuchal Cord: None Prep: Povidone-Iodine (Betadine Anesthesia Type: Epidural Amniotic Fluid Description: Clear Episiotomy Type: None Laceration: 1st Degree (midline perineal, hemostatic, not repaired) Placenta: Intact, Spontaneous Cord: 3 Vessels Estimated Blood Loss: 250 Resuscitation Needed: Yes [place]: Bulb Syringe, Stimulated, Warmed, [place] Used, Warmer Used Provider: Can Kerns Score 1 min: 6 Score 5 min: 9 Second Stage Interventions: Reports: Pushing Effectively, Pushing, Stirrups/Leg Supports Delivery Comments (Free Text/Narrative):: Stage I: Tonya Santiago was admitted for medically indicated induction of labor in the setting of gestational hypertension. On admission her cervix was dilated to 5.5 cm. She was GBS negative. She was started on Pitocin for induction of labor. She had artificial rupture of membranes with return of clear fluid. She was given an epidural for anesthesia. She progressed to complete and pushing. Stage II: On 08/02/2020 she had a normal vaginal delivery of a live male infant at 14:40. Apgars of 6 & 9. Weight of 3190 g (7 lbs 0.5 oz). Length of 20.5 inches. There was no nuchal cord. was delivered in PHONG position. The cord was doubly clamped and cut by myself. was placed on mother's abdomen and then taken to the warmer for additional resuscitation. Stage III: She had a spontaneous delivery of an intact placenta in Pamela presentation. Three vessel cord. She was given pitocin and fundal massage. She had a first-degree midline perineal laceration that was hemostatic and not repaired. Mom and baby were stable to recovery. I was called back into the room approximately 15 minutes after delivery of the placenta due to additional bleeding. On exam there was approximately 75 cc of blood clot removed from the lower uterine segment. Patient had no additional bleeding after removal of this blood clot. EBL of 250 mL. Costa Kaminski MD 3:31 PM 08/02/2020 Induction Criteria - Muñoz Score Muñoz Score Dilation: > 5 cm (5.5 cm) Muñoz Score Effacement: >80% Muñoz Score Infant's Station: -3 Muñoz Score Consistency: Soft Muñoz Score Cervix Position: Midposition Muñoz Score Total: 9 Muñoz Score Presenting Part: Reports: Cephalic - Induction Gestational Age >/= 39 wks: No Medical Indication: Gestational hypertension diagnosed at 36 weeks gestational age Estimated Pelvis: Reports: Adequate Reassuring Monitoring Strip: Yes Absence of Tachy Systole: Yes - Augmentation Estimated Pelvis: Reports: Adequate Weight Estimated:: Reports: AGA Reassuring Monitoring Strip: Yes Absence of Tachy Systole: Yes - General Info Date of Service: 08/02/20 - Patient Data Vitals - Most Recent: Last Vital Signs Temp 37.2 C 08/02/20 07:24 Pulse Resp 14 08/02/20 07:24 BP 118/78 08/02/20 07:24 Pulse Ox 95 08/02/20 07:24 Weight - Most Recent: 102.512 kg Lab Results Last 24 Hours: Laboratory Results - last 24 hr 08/02/20 08/02/20 08/02/20 Range/Units 07:30 07:46 07:46 WBC 9.00 (3.98-10.04) K/mm3 RBC 4.38 (3.98-5.22) M/mm3 Hgb 10.6 L (11.2-15.7) gm/dl Hct 34.0 L (34.1-44.9) % MCV 77.6 L (79.4-94.8) fl MCH 24.2 L (25.6-32.2) pg MCHC 31.2 L (32.2-35.5) g/dl RDW Std Deviation 41.9 (36.4-46.3) fL Plt Count 289 (182-369) K/mm3 MPV 9.8 (9.4-12.3) fl Neut % (Auto) 71.3 H (34.0-71.1) % Lymph % (Auto) 20.2 (19.3-51.7) % [place] % (Auto) 6.9 (4.7-12.5) % Eos % (Auto) 0.7 (0.7-5.8) Baso % (Auto) 0.2 (0.1-1.2) % Neut # (Auto) 6.42 H (1.56-6.13) K/mm3 Lymph # (Auto) 1.82 (1.18-3.74) K/mm3 [place] # (Auto) 0.62 H (0.24-0.36) K/mm3 Eos # (Auto) 0.06 (0.04-0.36) K/mm3 Baso # (Auto) 0.02 (0.01-0.08) K/mm3 Sodium (136-145) mEq/L Potassium (3.5-5.1) mEq/L Chloride (98-107) mEq/L Carbon Dioxide (21-32) mEq/L Anion Gap (5-15) BUN (7-18) mg/dL Creatinine (0.55-1.02) mg/dL Est Cr Clr Drug Dosing mL/min Estimated GFR (MDRD) (>60) mL/min BUN/Creatinine Ratio (14-18) Glucose (70-99) mg/dL Calcium (8.5-10.1) mg/dL Total Bilirubin (0.2-1.0) mg/dL AST (15-37) U/L ALT (14-59) U/L Alkaline Phosphatase (46-116) U/L Lactate Dehydrogenase (81-234) U/L Total Protein (6.4-8.2) g/dl Albumin (3.4-5.0) g/dl Globulin gm/dL Albumin/Globulin Ratio (1-2) Ur Random Creatinine (30.0-125.0) mg/dL U Random Total Protein (0.0-11.8) mg/dL Protein/Creatinin Ratio (0-149) mg/g RPR Non-reactive (NONREACTIVE) SARS-CoV-2 RNA (WEI) Negative (NEGATIVE) 08/02/20 08/02/20 Range/Units 07:46 09:15 WBC (3.98-10.04) K/mm3 RBC (3.98-5.22) M/mm3 Hgb (11.2-15.7) gm/dl Hct (34.1-44.9) % MCV (79.4-94.8) fl MCH (25.6-32.2) pg MCHC (32.2-35.5) g/dl RDW Std Deviation (36.4-46.3) fL Plt Count (182-369) K/mm3 MPV (9.4-12.3) fl Neut % (Auto) (34.0-71.1) % Lymph % (Auto) (19.3-51.7) % [place] % (Auto) (4.7-12.5) % Eos % (Auto) (0.7-5.8) Baso % (Auto) (0.1-1.2) % Neut # (Auto) (1.56-6.13) K/mm3 Lymph # (Auto) (1.18-3.74) K/mm3 [place] # (Auto) (0.24-0.36) K/mm3 Eos # (Auto) (0.04-0.36) K/mm3 Baso # (Auto) (0.01-0.08) K/mm3 Sodium 142 (136-145) mEq/L Potassium 3.9 (3.5-5.1) mEq/L Chloride 107 (98-107) mEq/L Carbon Dioxide 18 L (21-32) mEq/L Anion Gap 20.9 H (5-15) BUN 9 (7-18) mg/dL Creatinine 0.7 (0.55-1.02) mg/dL Est Cr Clr Drug Dosing 109.78 mL/min Estimated GFR (MDRD) > 60 (>60) mL/min BUN/Creatinine Ratio 12.9 L (14-18) Glucose 88 (70-99) mg/dL Calcium 9.1 (8.5-10.1) mg/dL Total Bilirubin 0.3 (0.2-1.0) mg/dL AST 13 L (15-37) U/L ALT 11 L (14-59) U/L Alkaline Phosphatase 157 H (46-116) U/L Lactate Dehydrogenase 135 (81-234) U/L Total Protein 6.9 (6.4-8.2) g/dl Albumin 2.6 L (3.4-5.0) g/dl Globulin 4.3 gm/dL Albumin/Globulin Ratio 0.6 L (1-2) Ur Random Creatinine 86.9 (30.0-125.0) mg/dL U Random Total Protein 10.9 (0.0-11.8) mg/dL Protein/Creatinin Ratio 125.4 (0-149) mg/g RPR (NONREACTIVE) SARS-CoV-2 RNA (WEI) (NEGATIVE) Med Orders - Current: Current Medications Calcium Carbonate/Glycine (Calcium Carbonate 500 Mg Tab.Chew) 1,000 mg PO Q2H PRN PRN Reason: Indigestion Ephedrine Sulfate (Ephedrine 50 Mg/Ml Sdv) 5 mg IVPUSH ASDIRECTED PRN PRN Reason: Hypotension Last Admin: 08/02/20 11:52 Dose: 5 mg Documented by: Fentanyl (Fentanyl 100 Mcg/2 Ml Sdv) 100 mcg EPIDUR Q3H PRN PRN Reason: Pain Last Admin: 08/02/20 11:10 Dose: 100 mcg Documented by: Fentanyl/Bupivacaine HCl (Bupivacaine/Fentanyl/Ns 100 Ml Bag) 100 ml EPIDUR ASDIRECTED THELMA Last Admin: 08/02/20 11:10 Dose: 100 ml Documented by: Oxytocin/Lactated Ringer's (Pitocin In Lr 10 Units/1,000 Ml) 10 unit in 1,000 mls @ 12 mls/hr IV TITRATE THELMA; Protocol Last Titration: 08/02/20 14:09 Dose: 16 munits/min, 96 mls/hr Documented by: Lactated Ringer's (Ringers, Lactated) 1,000 mls @ 100 mls/hr IV ASDIRECTED THELMA Last Admin: 08/02/20 11:54 Dose: 999 mls/hr Documented by: Miscellaneous Medication (Phenylephrine Hcl In 0.9% Nacl 1 Mg/10 Ml Syringe) 0.1 mg IVPUSH Q10M PRN PRN Reason: Hypotension Nalbuphine HCl (Nalbuphine 10 Mg/1 Ml Vial) 10 mg IVPUSH Q2H PRN PRN Reason: Pain Ondansetron HCl (Ondansetron 4 Mg/2 Ml Sdv) 4 mg IVPUSH Q4H PRN PRN Reason: Nausea/Vomiting Last Admin: 08/02/20 13:18 Dose: 4 mg Documented by: Ondansetron HCl (Ondansetron 4 Mg/2 Ml Sdv) 4 mg IVPUSH ONETIME PRN PRN Reason: Nausea/Vomiting Sodium Chloride (Sodium Chloride 0.9% 10 Ml Syringe) 10 ml FLUSH ASDIRECTED PRN PRN Reason: Keep Vein Open Discontinued Medications Fentanyl (Fentanyl 100 Mcg/2 Ml Sdv) Confirm Administered Dose 100 mcg .ROUTE .STK-MED ONE Stop: 08/02/20 11:09 Last Admin: 08/02/20 11:11 Dose: Not Given Documented by: - Exam Urinary Catheter Total Time: 0Days 2Hours - Problem List & Annotations (1) 37 weeks gestation of SNOMED Code(s): 50389542 Code(s): Z3A.37 - 37 WEEKS GESTATION OF Status: Acute Current Visit: Yes (2) Gestational hypertension SNOMED Code(s): 450887610 Code(s): O13.9 - GESTATIONAL HTN W/O SIGNIFICANT PROTEINURIA, UNSP TRIMESTER Status: Acute Current Visit: Yes (3) History of depression SNOMED Code(s): 941595167 Code(s): Z86.59 - PERSONAL HISTORY OF OTHER MENTAL AND BEHAVIORAL DISORDERS Status: Acute Current Visit: Yes (4) First degree perineal laceration during delivery SNOMED Code(s): 438657909 Code(s): O70.0 - FIRST DEGREE PERINEAL LACERATION DURING DELIVERY Status: Acute Current Visit: Yes - Problem List Review Problem List Initiated/Reviewed/Updated: Yes - My Orders Last 24 Hours: My Active Orders 08/02/20 Breakfast Regular Diet [DIET] 08/02/20 07:28 Calcium Carbonate [Tums] 1,000 mg PO Q2H PRN Nalbuphine [Nubain] 10 mg IVPUSH Q2H PRN Ondansetron [Zofran] 4 mg IVPUSH Q4H PRN Sodium Chloride 0.9% [Saline Flush] 10 ml FLUSH ASDIRECTED PRN Resuscitation Status Routine 08/02/20 07:29 Patient Status [ADT] Routine Activity as Tolerated [RC] PFP Communication Order [RC] ASDIRECTED Notify Provider [RC] PFP Notify Provider [RC] PRN Vital Signs [RC] 03,,, Electronic Heart Tones Ext w TOCO [WOMSER] Routine Electronic Heart Tones Internal [WOMSER] Per Unit Routine Peripheral IV Insertion Adult [OM.PC] Routine 08/02/20 07:30 Lactated Ringers [Ringers, Lactated] 1,000 ml IV ASDIRECTED Oxytocin/Lactated Ringers [Pitocin in LR 10 Units/1,000 ML] 10 unit in 1,000 ml IV TITRATE 08/02/20 07:31 Peripheral IV Care [RC] . DIRECTED 08/02/20 07:46 HEPATITIS B SURFACE AG [CHEM] Routine RUBELLA ANTIBODY IGG [CHEM] Routine 08/02/20 09:27 HIV 1/2 AB [REF] Routine 08/02/20 15:10 Patient Status Manage Transfer [TRANSFER] Routine - Plan Plan:: Tonya Santiago is a 19-year-old G4 now P2-0-2-2 female status post , PPD #0 complicated by gestational hypertension, gastroesophageal reflux disorder and history of depression Admit to inpatient following normal spontaneous vaginal delivery Continue Pitocin per unit protocol following delivery of placenta and lactated Ringer's until tolerating regular diet Regular diet Vitals per unit routine Ibuprofen and Tylenol for pain control Assist with breast-feeding as needed Continue to monitor lochia Anticipate discharge home on day #1 Costa Kaminski MD 3:31 PM 08/02/2020
[2020-08-02] MEDS ORDERED: Magnesium Hydroxide 400 MG/5 ML Susp 30 ML Cup PO PRN (15:52)
[2020-08-02] MEDS ORDERED: Acetaminophen 325 MG Tab PO PRN (15:52)
[2020-08-02] MEDS ORDERED: Hydrocortisone Acetate 25 MG Supp RECTAL PRN (15:52)
[2020-08-02] MEDS ORDERED: Docusate Sodium 100 MG Cap PO PRN (15:52)
[2020-08-02] MEDS: Ibuprofen 600 MG Tab PO PRN (16:22)
[2020-08-02] MEDS: Benzocaine/Menthol 20%-0.5% Spray 56 GM Canister TOP PRN (16:23)
[2020-08-02] MEDS: Witch Hazel Medicated Pads 40/Jar TOP PRN (16:23)
[2020-08-03] MEDS ORDERED: Ferrous Sulfate 324 MG Tab.EC PO SCH (07:00)
--- NOTE | 2020-08-03 08:58 | PCM48HPAN ---
Post Anesthesia Note - EVALUATION WITHIN 48HRS OF ANESTHETIC Vital Signs in Normal Range: Yes Patient Participated in Evaluation: Yes Respiratory Function Stable: Yes Airway Patent: Yes Cardiovascular Function Stable: Yes Hydration Status Stable: Yes Pain Control Satisfactory: Yes Nausea and Vomiting Control Satisfactory: Yes Mental Status Recovered: Yes Vital Signs: Last Vital Signs Temp 97.9 F 08/03/20 03:37 Pulse 76 08/03/20 03:37 Resp 14 08/03/20 03:37 BP 117/71 08/03/20 03:37 Pulse Ox 98 08/03/20 03:37
[2020-08-03] MEDS ORDERED: Prenatal Multivitamin with Calcium/Folic Acid/Iron Tab PO SCH (09:00)
--- NOTE | 2020-08-03 12:07 | PCM.DCSUM1 ---
Discharge Summary - Hospital Course Free Text/Narrative:: Tonya Santiago is a 19-year-old G4 para 2-0-2-2 at 37 weeks 0 days ([place] 08/23/2020) by a 7-week ultrasound who presented for induction of labor in the setting of gestational hypertension. She underwent induction of labor. She had delivery on 08/02/2020. Stage I: Tonya Santiago was admitted for medically indicated induction of labor in the setting of gestational hypertension. On admission her cervix was dilated to 5.5 cm. She was GBS negative. She was started on Pitocin for induction of labor. She had artificial rupture of membranes with return of clear fluid. She was given an epidural for anesthesia. She progressed to complete and pushing. Stage II: On 08/02/2020 she had a normal vaginal delivery of a live male at 14:40. Apgars of 6 & 9. Weight of 3190 g (7 lbs 0.5 oz). Length of 20.5 inches. There was no nuchal cord. was delivered in PHONG position. The cord was doubly clamped and cut by myself. Infant was placed on mother's abdomen and then taken to the warmer for additional resuscitation. Stage III: She had a spontaneous delivery of an intact placenta in Pamela presentation. Three vessel cord. She was given pitocin and fundal massage. She had a first-degree midline perineal laceration that was hemostatic and not repa ired. Mom and baby were stable to recovery. I was called back into the room approximately 15 minutes after delivery of the placenta due to additional bleeding. On exam there was approximately 75 cc of blood clot removed from the lower uterine segment. Patient had no additional bleeding after removal of this blood clot. EBL of 250 mL. her vital signs have been relatively normal. She has minimal lochia, is voiding well. She is breast-feeding. She is desiring discharge home. A manager social responsibility evaluation will be done prior to discharge. Condition: Good. Diagnosis: Stroke: No - Discharge Data Discharge Date: 08/03/20 Discharge Disposition: Home, Self-Care 01 Condition: Good - Referral to Home Health Primary Care Physician: Costa Kaminski MD - Discharge Diagnosis/Problem(s) (1) 37 weeks gestation of SNOMED Code(s): 03053682 ICD Code: Z3A.37 - 37 WEEKS GESTATION OF Status: Acute Current Visit: Yes (2) Gestational hypertension SNOMED Code(s): 118486268 ICD Code: O13.9 - GESTATIONAL HTN W/O SIGNIFICANT PROTEINURIA, UNSP TRIMESTER Status: Acute Current Visit: Yes - Patient Instructions Diet: Regular Diet as Tolerated (Nursing diet with increased calories and calcium as recommended) Activity: As Tolerated (No intercourse or tampons until bleeding resolves) Driving: May Drive Today Showering/Bathing: May Shower (May take a bath) Notify Provider of: Fever, Increased Pain, Swelling and Redness, Drainage - Discharge Plan Home Medications: Home Meds Pnv No.95/Ferrous Fum/Folic AC [ Caplet] 1 cap PO DAILY 01/05/20 [History] Cyclobenzaprine HCl 10 mg PO TID PRN 07/16/20 [History] Acetaminophen [Tylenol] 650 mg PO Q6H PRN tablet 08/03/20 [Rx] Ibuprofen [Motrin] 600 mg PO Q6H PRN tablet 08/03/20 [Rx] - Discharge Summary/Plan Comment DC Time >30 min.: Yes Discharge Summary/Plan Comment: Discharge instructions: 1. Discharge home 2. Diet, activity and follow-up discussed with patient. Recommend nursing diet with increased calories and calcium. 3. Precautions given concern increased pain, bleeding, temperature, signs/symptoms of DVT/PE. 4. Medications per home medication was printed, discussed with and given to the patient. [facility]. [facility] Diagnosis: 1. Term -delivered 2. Hypertension in Condition: Good - Patient Data Vitals - Most Recent: Last Vital Signs Temp 36.5 C 08/03/20 09:05 Pulse 73 08/03/20 09:05 Resp 16 08/03/20 09:05 BP 111/87 08/03/20 09:05 Pulse Ox 98 08/03/20 09:05 Weight - Most Recent: 102.512 kg I&O - Last 24 hours: Intake & Output 08/02/20 08/03/20 08/03/20 22:59 06:59 14:59 Intake Total 120 120 Output Total 632 Balance -512 120 Lab Results - Last 24 hrs: Laboratory Results - last 24 hr 08/02/20 Range/Units 07:46 Hep Bs Antigen Nonreactive (NONREACTIVE) Rubella IgG Antibody Reactive (pos) (REACTIVE) Med Orders - Current: Current Medications Acetaminophen (Acetaminophen 325 Mg Tab) 650 mg PO Q6H PRN PRN Reason: mild pain or fever Last Admin: 08/03/20 05:58 Dose: 650 mg Documented by: Benzocaine/Menthol (Benzocaine/Menthol 20%-0.5% [place] 56 Gm Canister) 0 gm TOP ASDIRECTED PRN PRN Reason: Perineal Comfort Measure Last Admin: 08/02/20 16:23 Dose: 1 can Documented by: Docusate Sodium (Docusate Sodium 100 Mg Cap) 100 mg PO BID PRN PRN Reason: Constipation Last Admin: 08/02/20 16:22 Dose: 100 mg Documented by: Ferrous Sulfate (Ferrous Sulfate 324 Mg Tab.Ec) 324 mg PO WITHBREAKFAST THELMA Last Admin: 08/03/20 08:57 Dose: 324 mg Documented by: Hydrocortisone Acetate (Hydrocortisone Acetate 25 Mg Supp) 25 mg RECTAL BID PRN PRN Reason: Hemorrhoid pain Oxytocin/Lactated Ringer's (Pitocin In Lr 10 Units/1,000 Ml) 10 unit in 1,000 mls @ 100 mls/hr IV TITRATE THELMA; Protocol Ibuprofen (Ibuprofen 600 Mg Tab) 600 mg PO Q6H PRN PRN Reason: Mild pain or fever Last Admin: 08/02/20 16:22 Dose: 600 mg Documented by: Magnesium Hydroxide (Magnesium Hydroxide 400 Mg/5 Ml Susp 30 Ml Cup) 30 ml PO BEDTIME PRN PRN Reason: Constipation Prenat Multivit/[place]/Iron/Folic Ac ( Multivitamin With Calcium/Folic Acid/Iron Tab) 1 each PO DAILY THELMA Last Admin: 08/03/20 08:57 Dose: 1 each Documented by: Trish Yip (Trish Yip Medicated Pads 40/Jar) 1 pad TOP ASDIRECTED PRN PRN Reason: Perineal Comfort Measure Last Admin: 08/02/20 16:23 Dose: 1 can Documented by: Discontinued Medications Bupivacaine HCl (Bupivacaine 0.25% 10 Ml Sdv) 10 ml .ROUTE .STK-MED ONE Stop: 08/02/20 00:01 Calcium Carbonate/Glycine (Calcium Carbonate 500 Mg Tab.Chew) 1,000 mg PO Q2H PRN PRN Reason: Indigestion Ephedrine Sulfate (Ephedrine 50 Mg/Ml Sdv) 5 mg IVPUSH ASDIRECTED PRN PRN Reason: Hypotension Last Admin: 08/02/20 11:52 Dose: 5 mg Documented by: Ephedrine Sulfate (Ephedrine 50 Mg/Ml Sdv) 50 mg .ROUTE .STK-MED ONE Stop: 08/02/20 00:01 Fentanyl (Fentanyl 100 Mcg/2 Ml Sdv) 100 mcg EPIDUR Q3H PRN PRN Reason: Pain Last Admin: 08/02/20 11:10 Dose: 100 mcg Documented by: Fentanyl (Fentanyl 100 Mcg/2 Ml Sdv) Confirm Administered Dose 100 mcg .ROUTE .STK-MED ONE Stop: 08/02/20 11:09 Last Admin: 08/02/20 11:11 Dose: Not Given Documented by: Fentanyl (Fentanyl 100 Mcg/2 Ml Sdv) Confirm Administered Dose 100 mcg .ROUTE .[facility]-MED ONE Stop: 08/02/20 19:13 Last Admin: 08/03/20 07:33 Dose: Not Given Documented by: Fentanyl/Bupivacaine HCl (Bupivacaine/Fentanyl/Ns 100 Ml Bag) 100 ml EPIDUR ASDIRECTED [facility] Last Admin: 08/02/20 11:10 Dose: 100 ml Documented by: Oxytocin/Lactated Ringer's (Pitocin In Lr 10 Units/1,000 Ml) 10 unit in 1,000 mls @ 12 mls/hr IV TITRATE [facility]; Protocol Last Titration: 08/02/20 14:40 Dose: 999 munits/min, 5,994 mls/hr Documented by: Lactated Ringer's (Ringers, Lactated) 1,000 mls @ 100 mls/hr IV ASDIRECTED [facility] Last Admin: 08/02/20 11:54 Dose: 999 mls/hr Documented by: Miscellaneous Medication (Phenylephrine Hcl In 0.9% Nacl 1 Mg/10 Ml Syringe) 0.1 mg IVPUSH Q10M PRN PRN Reason: Hypotension Nalbuphine HCl (Nalbuphine 10 Mg/1 Ml Vial) 10 mg IVPUSH Q2H PRN PRN Reason: Pain Ondansetron HCl (Ondansetron 4 Mg/2 Ml Sdv) 4 mg IVPUSH Q4H PRN PRN Reason: Nausea/Vomiting Last Admin: 06/27/21 13:18 Dose: 4 mg Documented by: Ondansetron HCl (Ondansetron 4 Mg/2 Ml Sdv) 4 mg IVPUSH ONETIME PRN PRN Reason: Nausea/Vomiting Sodium Chloride (Sodium Chloride 0.9% 10 Ml Syringe) 10 ml FLUSH ASDIRECTED PRN PRN Reason: Keep Vein Open
[2020-08-03] MEDS: Ibuprofen 600 MG Tab PO PRN (12:40)
[2020-08-03] MEDS: Witch Hazel Medicated Pads 40/Jar TOP PRN (16:02)
[2020-08-03] MEDS: Benzocaine/Menthol 20%-0.5% Spray 56 GM Canister TOP PRN (16:02)
[2020-08-03 16:44] VITALS: BP 133/79; PULSE 81
== END 2020-08-03 16:12 | disposition home or self-care (01) | DRG 807 ==
LOC: JD.OB 07:05 → OBSVTOIN 14:40
PROVIDERS: ADMIT Obstetrics & Gynecology; ATTEND Obstetrics & Gynecology
PROC: 10E0XZZ Delivery of Products of Conception, External Approach (ICD-10-PCS; principal; 2020-08-02)
PROC: 3E033VJ Introduction of Other Hormone into Peripheral Vein, Percutaneous Approach (ICD-10-PCS; 2020-08-02)
PROC: 10907ZC Drainage of Amniotic Fluid, Therapeutic from Products of Conception, Via Natural or Artificial Opening (ICD-10-PCS; 2020-08-02)
PROC: 0HQ9XZZ Repair Perineum Skin, External Approach (ICD-10-PCS; 2020-08-02)
PROC: 3E0R3BZ Introduction of Anesthetic Agent into Spinal Canal, Percutaneous Approach (ICD-10-PCS; 2020-08-02)
DX: O13.4 Gestational [pregnancy-induced] hypertension without significant proteinuria, complicating childbirth (principal); Z37.0 Single live birth; Z3A.37 37 weeks gestation of pregnancy
CPT/HCPCS: 01967; 36415; 51702; 59025; 59409; 80053; 82570; 83615; 84156; 85025; 86592; 86701; 86702; 86762; 87340; A9270-GY; J2405; J2590; J3010; J3490; J7120; U0002

== ENCOUNTER 2020-08-05 00:50 | Observation (INO) | payer MEDICAID ==
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
[2020-08-05] MEDS ORDERED: Lactated Ringers 1,000 ML IV SCH (01:45)
[2020-08-05] MEDS ORDERED: HYDROmorphone 0.5 MG/0.5 ML Syringe IVPUSH ONE (02:08)
[2020-08-05] MEDS ORDERED: Piperacillin/Tazobactam 4.5 GM in Sodium Chloride 0.9% 100 ML IV ONE ×2 (04:05→04:29)
[2020-08-05] MEDS ORDERED: Acetaminophen 325 MG Tab PO ONE (04:26)
[2020-08-05 06:55] LABS: CORONAVIRUS COVID-19 NAA NEGATIVE (NEGATIVE)
--- NOTE | 2020-08-05 08:18 | US ---
Pelvic ultrasound: Multiple real-time images were obtained transabdominally. Comparison: No prior pelvic ultrasound is available. Uterus is anteverted. No myometrial abnormality is seen. Endometrial thickness is 8 mm. Visualized portions of the cervix appear within normal limits. Ovaries appear within normal limits. No free fluid is seen. Measurements: Right ovary: 3.4 x 1.9 x 3.1 cm Left ovary: 3.0 x 2.0 x 3.7 cm Uterus: Length 14.5 cm, AP height 9.3 cm, transverse width 11.3 cm Impression: 1. Slightly generous size of the uterus compatible with recent . 2. Other portions of the pelvic ultrasound are unremarkable. Diagnostic code #1 I agree with preliminary report from [facility], finalized on 08/05/20, 6:50 AM CDT
[2020-08-05] MEDS ORDERED: Acetaminophen 325 MG Tab PO PRN (11:21)
[2020-08-05] MEDS ORDERED: Ibuprofen 600 MG Tab PO PRN (11:21)
[2020-08-05] MEDS ORDERED: oxyCODONE 5 MG Tab PO PRN (11:22)
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
[2020-08-05] MEDS ORDERED: Magnesium Hydroxide 400 MG/5 ML Susp 30 ML Cup PO ONE (11:45)
[2020-08-05] MEDS ORDERED: Gentamicin 500 MG in Sodium Chloride 0.9% 100 ML IV SCH (12:30)
[2020-08-05] MEDS: Clindamycin Phosphate in D5W 900 MG in Premix Bag 1 BAG IV SCH ×4 (12:39→20:32)
[2020-08-05] MEDS: Docusate Sodium 100 MG Cap PO SCH ×2 (12:40→20:32)
--- NOTE | 2020-08-05 21:32 | PCM.PN ---
- General Info Date of Service: 08/05/20 Admission Dx/Problem (Free Text): Admission Diagnosis/Problem Admission Diagnosis/Problem Endometritis following delivery Subjective Update: Reports feeling much better than this morning. Denies any ongoing fevers but did feel warm earlier this evening with vital signs. Has been voiding without difficulty. Passing increased amounts of flatus but has not had a bowel movement. Feels like the rectal pressure is improving. Denies any pain at this time. Functional Status: Reports: Pain Controlled, Tolerating Diet, Ambulating, Urinating - Review of Systems General: Denies: Fever, Weakness, Malaise Pulmonary: Denies: Shortness of Breath, Pleuritic Chest Pain, Cough Cardiovascular: Denies: Chest Pain Gastrointestinal: Reports: Flatus. Denies: Abdominal Pain, Constipation, Diarrh ea, Nausea, Vomiting Genitourinary: Denies: Dysuria, Frequency, Burning, Pain, Urgency - Patient Data Vitals - Most Recent: Last Vital Signs Temp 37.1 C 08/05/20 16:49 Pulse 95 08/05/20 15:28 Resp 20 08/05/20 15:28 BP 137/65 08/05/20 15:28 Pulse Ox 99 08/05/20 15:28 Weight - Most Recent: 98.656 kg I&O - Last 24 Hours: Intake & Output 08/05/20 08/05/20 08/05/20 06:59 14:59 22:59 Intake Total 120 970 Balance 120 970 Lab Results Last 24 Hours: Laboratory Results - last 24 hr 08/05/20 08/05/20 08/05/20 Range/Units 00:55 01:35 01:35 WBC (3.98-10.04) K/mm3 RBC (3.98-5.22) M/mm3 Hgb (11.2-15.7) gm/dl Hct (34.1-44.9) % MCV (79.4-94.8) fl MCH (25.6-32.2) pg MCHC (32.2-35.5) g/dl RDW Std Deviation (36.4-46.3) fL Plt Count (182-369) K/mm3 MPV (9.4-12.3) fl Neut % (Auto) (34.0-71.1) % Lymph % (Auto) (19.3-51.7) % Teller % (Auto) (4.7-12.5) % Eos % (Auto) (0.7-5.8) Baso % (Auto) (0.1-1.2) % Neut # (Auto) (1.56-6.13) K/mm3 Lymph # (Auto) (1.18-3.74) K/mm3 Teller # (Auto) (0.24-0.36) K/mm3 Eos # (Auto) (0.04-0.36) K/mm3 Baso # (Auto) (0.01-0.08) K/mm3 Sodium 142 (136-145) mEq/L Potassium 3.7 (3.5-5.1) mEq/L Chloride 108 H (98-107) mEq/L Carbon Dioxide 22 (21-32) mEq/L Anion Gap 15.7 H (5-15) BUN 11 (7-18) mg/dL Creatinine 0.8 (0.55-1.02) mg/dL Est Cr Clr Drug Dosing 96.06 mL/min Estimated GFR (MDRD) > 60 (>60) mL/min BUN/Creatinine Ratio 13.8 L (14-18) Glucose 90 (70-99) mg/dL Lactic Acid 1.3 (0.4-2.0) mmol/L Calcium 9.0 (8.5-10.1) mg/dL Total Bilirubin 0.2 (0.2-1.0) mg/dL AST 14 L (15-37) U/L ALT 15 (14-59) U/L Alkaline Phosphatase 129 H (46-116) U/L C-Reactive Protein 3.9 H* (<1.0) mg/dL Total Protein 6.6 (6.4-8.2) g/dl Albumin 2.5 L (3.4-5.0) g/dl Globulin 4.1 gm/dL Albumin/Globulin Ratio 0.6 L (1-2) Urine Color Yellow (Yellow) Urine Appearance Clear (Clear) Urine pH 7.0 (5.0-8.0) Ur Specific Clarinda 1.025 (1.005-1.030) Urine Protein Negative (Negative) Urine Glucose (UA) Negative (Negative) Urine Ketones Negative (Negative) Urine Occult Blood Negative (Negative) Urine Nitrite Negative (Negative) Urine Bilirubin Negative (Negative) Urine Urobilinogen 0.2 (0.2-1.0) Ur Leukocyte Esterase Negative (Negative) Influenza Type A RNA (NEGATIVE) Influenza Type B RNA (NEGATIVE) SARS-CoV-2 RNA (WEI) (NEGATIVE) 08/05/20 08/05/20 Range/Units 01:45 06:10 WBC 12.26 H (3.98-10.04) K/mm3 RBC 4.29 (3.98-5.22) M/mm3 Hgb 10.4 L (11.2-15.7) gm/dl Hct 33.7 L (34.1-44.9) % MCV 78.6 L (79.4-94.8) fl MCH 24.2 L (25.6-32.2) pg MCHC 30.9 L (32.2-35.5) g/dl RDW Std Deviation 44.2 (36.4-46.3) fL Plt Count 300 (182-369) K/mm3 MPV 9.9 (9.4-12.3) fl Neut % (Auto) 82.0 H (34.0-71.1) % Lymph % (Auto) 11.6 L (19.3-51.7) % Teller % (Auto) 5.5 (4.7-12.5) % Eos % (Auto) 0.4 L (0.7-5.8) Baso % (Auto) 0.5 (0.1-1.2) % Neut # (Auto) 10.06 H (1.56-6.13) K/mm3 Lymph # (Auto) 1.42 (1.18-3.74) K/mm3 Teller # (Auto) 0.67 H (0.24-0.36) K/mm3 Eos # (Auto) 0.05 (0.04-0.36) K/mm3 Baso # (Auto) 0.06 (0.01-0.08) K/mm3 Sodium (136-145) mEq/L Potassium (3.5-5.1) mEq/L Chloride (98-107) mEq/L Carbon Dioxide (21-32) mEq/L Anion Gap (5-15) BUN (7-18) mg/dL Creatinine (0.55-1.02) mg/dL Est Cr Clr Drug Dosing mL/min Estimated GFR (MDRD) (>60) mL/min BUN/Creatinine Ratio (14-18) Glucose (70-99) mg/dL Lactic Acid (0.4-2.0) mmol/L Calcium (8.5-10.1) mg/dL Total Bilirubin (0.2-1.0) mg/dL AST (15-37) U/L ALT (14-59) U/L Alkaline Phosphatase (46-116) U/L C-Reactive Protein (<1.0) mg/dL Total Protein (6.4-8.2) g/dl Albumin (3.4-5.0) g/dl Globulin gm/dL Albumin/Globulin Ratio (1-2) Urine Color (Yellow) Urine Appearance (Clear) Urine pH (5.0-8.0) Ur Specific Clarinda (1.005-1.030) Urine Protein (Negative) Urine Glucose (UA) (Negative) Urine Ketones (Negative) Urine Occult Blood (Negative) Urine Nitrite (Negative) Urine Bilirubin (Negative) Urine Urobilinogen (0.2-1.0) Ur Leukocyte Esterase (Negative) Influenza Type A RNA Negative (NEGATIVE) Influenza Type B RNA Negative (NEGATIVE) SARS-CoV-2 RNA (WEI) Negative (NEGATIVE) Med Orders - Current: Current Medications Acetaminophen (Acetaminophen 325 Mg Tab) 650 mg PO Q6H PRN PRN Reason: Pain/Fever Last Admin: 08/05/20 15:57 Dose: 650 mg Documented by: Docusate Sodium (Docusate Sodium 100 Mg Cap) 100 mg PO BID [facility] Last Admin: 08/05/20 20:32 Dose: 100 mg Documented by: Clindamycin Phosphate 900 mg/ (Premix) 50 mls @ 100 mls/hr IV Q8H [facility] Last Admin: 08/05/20 20:32 Dose: 100 mls/hr Documented by: Gentamicin Sulfate 500 mg/ (Sodium Chloride) 112.5 mls @ 112.5 mls/hr IV Q24H [facility] Last Admin: 08/05/20 13:27 Dose: 112.5 mls/hr Documented by: Ibuprofen (Ibuprofen 600 Mg Tab) 600 mg PO Q6H PRN PRN Reason: Pain Oxycodone HCl (Oxycodone 5 Mg Tab) 5 mg PO Q6H PRN PRN Reason: Breakthrough Pain Discontinued Medications Acetaminophen (Acetaminophen 325 Mg Tab) 650 mg PO NOW ONE Stop: 08/05/20 04:27 Last Admin: 08/05/20 04:34 Dose: 650 mg Documented by: Hydromorphone HCl (Hydromorphone 0.5 Mg/0.5 Ml Syringe) 0.5 mg IVPUSH ONETIME ONE Stop: 08/05/20 02:09 Last Admin: 08/05/20 02:35 Dose: 0.5 mg Documented by: Lactated Ringer's (Ringers, Lactated) 1,000 mls @ 100 mls/hr IV ASDIRECTED [facility] Last Admin: 08/05/20 02:35 Dose: 100 mls/hr Documented by: Piperacillin Sod/Tazobactam (Sod 4.5 gm/ Sodium Chloride) 100 mls @ 200 mls/hr IV ONETIME ONE Stop: 08/05/20 04:58 Last Admin: 08/05/20 04:34 Dose: 200 mls/hr Documented by: Magnesium Hydroxide (Magnesium Hydroxide 400 Mg/5 Ml Susp 30 Ml Cup) 30 ml PO ONETIME ONE Stop: 08/05/20 11:46 Last Admin: 08/05/20 12:40 Dose: 30 ml Documented by: - Exam General: Alert, Oriented HEENT: EOMI Neck: Supple Lungs: Clear to Auscultation, Normal Respiratory Effort Cardiovascular: Regular Rate, Regular Rhythm GI/Abdominal Exam: Soft, No Distention, Tender (minimal superpubic tenderness), Other (No CVA tenderness at this time) Skin: Warm, Dry, Intact - Patient Data Lab Results Last 24 hrs: Laboratory Results - last 24 hr 08/05/20 08/05/20 08/05/20 Range/Units 00:55 01:35 01:35 WBC (3.98-10.04) K/mm3 RBC (3.98-5.22) M/mm3 Hgb (11.2-15.7) gm/dl Hct (34.1-44.9) % MCV (79.4-94.8) fl MCH (25.6-32.2) pg MCHC (32.2-35.5) g/dl RDW Std Deviation (36.4-46.3) fL Plt Count (182-369) K/mm3 MPV (9.4-12.3) fl Neut % (Auto) (34.0-71.1) % Lymph % (Auto) (19.3-51.7) % Teller % (Auto) (4.7-12.5) % Eos % (Auto) (0.7-5.8) Baso % (Auto) (0.1-1.2) % Neut # (Auto) (1.56-6.13) K/mm3 Lymph # (Auto) (1.18-3.74) K/mm3 Teller # (Auto) (0.24-0.36) K/mm3 Eos # (Auto) (0.04-0.36) K/mm3 Baso # (Auto) (0.01-0.08) K/mm3 Sodium 142 (136-145) mEq/L Potassium 3.7 (3.5-5.1) mEq/L Chloride 108 H (98-107) mEq/L Carbon Dioxide 22 (21-32) mEq/L Anion Gap 15.7 H (5-15) BUN 11 (7-18) mg/dL Creatinine 0.8 (0.55-1.02) mg/dL Est Cr Clr Drug Dosing 96.06 mL/min Estimated GFR (MDRD) > 60 (>60) mL/min BUN/Creatinine Ratio 13.8 L (14-18) Glucose 90 (70-99) mg/dL Lactic Acid 1.3 (0.4-2.0) mmol/L Calcium 9.0 (8.5-10.1) mg/dL Total Bilirubin 0.2 (0.2-1.0) mg/dL AST 14 L (15-37) U/L ALT 15 (14-59) U/L Alkaline Phosphatase 129 H (46-116) U/L C-Reactive Protein 3.9 H* (<1.0) mg/dL Total Protein 6.6 (6.4-8.2) g/dl Albumin 2.5 L (3.4-5.0) g/dl Globulin 4.1 gm/dL Albumin/Globulin Ratio 0.6 L (1-2) Urine Color Yellow (Yellow) Urine Appearance Clear (Clear) Urine pH 7.0 (5.0-8.0) Ur Specific Clarinda 1.025 (1.005-1.030) Urine Protein Negative (Negative) Urine Glucose (UA) Negative (Negative) Urine Ketones Negative (Negative) Urine Occult Blood Negative (Negative) Urine Nitrite Negative (Negative) Urine Bilirubin Negative (Negative) Urine Urobilinogen 0.2 (0.2-1.0) Ur Leukocyte Esterase Negative (Negative) Influenza Type A RNA (NEGATIVE) Influenza Type B RNA (NEGATIVE) SARS-CoV-2 RNA (WEI) (NEGATIVE) 08/05/20 08/05/20 Range/Units 01:45 06:10 WBC 12.26 H (3.98-10.04) K/mm3 RBC 4.29 (3.98-5.22) M/mm3 Hgb 10.4 L (11.2-15.7) gm/dl Hct 33.7 L (34.1-44.9) % MCV 78.6 L (79.4-94.8) fl MCH 24.2 L (25.6-32.2) pg MCHC 30.9 L (32.2-35.5) g/dl RDW Std Deviation 44.2 (36.4-46.3) fL Plt Count 300 (182-369) K/mm3 MPV 9.9 (9.4-12.3) fl Neut % (Auto) 82.0 H (34.0-71.1) % Lymph % (Auto) 11.6 L (19.3-51.7) % Teller % (Auto) 5.5 (4.7-12.5) % Eos % (Auto) 0.4 L (0.7-5.8) Baso % (Auto) 0.5 (0.1-1.2) % Neut # (Auto) 10.06 H (1.56-6.13) K/mm3 Lymph # (Auto) 1.42 (1.18-3.74) K/mm3 Teller # (Auto) 0.67 H (0.24-0.36) K/mm3 Eos # (Auto) 0.05 (0.04-0.36) K/mm3 Baso # (Auto) 0.06 (0.01-0.08) K/mm3 Sodium (136-145) mEq/L Potassium (3.5-5.1) mEq/L Chloride (98-107) mEq/L Carbon Dioxide (21-32) mEq/L Anion Gap (5-15) BUN (7-18) mg/dL Creatinine (0.55-1.02) mg/dL Est Cr Clr Drug Dosing mL/min Estimated GFR (MDRD) (>60) mL/min BUN/Creatinine Ratio (14-18) Glucose (70-99) mg/dL Lactic Acid (0.4-2.0) mmol/L Calcium (8.5-10.1) mg/dL Total Bilirubin (0.2-1.0) mg/dL AST (15-37) U/L ALT (14-59) U/L Alkaline Phosphatase (46-116) U/L C-Reactive Protein (<1.0) mg/dL Total Protein (6.4-8.2) g/dl Albumin (3.4-5.0) g/dl Globulin gm/dL Albumin/Globulin Ratio (1-2) Urine Color (Yellow) Urine Appearance (Clear) Urine pH (5.0-8.0) Ur Specific Clarinda (1.005-1.030) Urine Protein (Negative) Urine Glucose (UA) (Negative) Urine Ketones (Negative) Urine Occult Blood (Negative) Urine Nitrite (Negative) Urine Bilirubin (Negative) Urine Urobilinogen (0.2-1.0) Ur Leukocyte Esterase (Negative) Influenza Type A RNA Negative (NEGATIVE) Influenza Type B RNA Negative (NEGATIVE) SARS-CoV-2 RNA (WEI) Negative (NEGATIVE) Result Diagrams: 08/05/20 01:45 08/05/20 01:35 Sepsis Event Note - Evaluation Sepsis Screening Result: No Definite Risk - Focused Exam Vital Signs: Vital Signs Temp Pulse Resp BP Pulse Ox 08/05/20 16:49 37.1 C 08/05/20 15:57 37.9 C 08/05/20 15:28 37.9 C 95 20 137/65 99 08/05/20 11:38 37.4 C 80 16 124/73 100 - Problem List & Annotations (1) endometritis SNOMED Code(s): 83665986 Code(s): O86.12 - ENDOMETRITIS FOLLOWING DELIVERY Status: Acute Current Visit: Yes - Problem List Review Problem List Initiated/Reviewed/Updated: Yes - My Orders Last 24 Hours: My Active Orders 08/05/20 11:21 Acetaminophen [TylenoL] 650 mg PO Q6H PRN Ibuprofen [Motrin] 600 mg PO Q6H PRN 08/05/20 11:22 oxyCODONE 5 mg PO Q6H PRN 08/05/20 11:29 Vital Signs [RC] Q4HR 08/05/20 11:30 Notify Provider Vital Signs [RC] ASDIRECTED 08/05/20 11:45 Docusate Sodium [Colace] 100 mg PO BID 08/05/20 12:00 Clindamycin Phosphate in D5W [Cleocin in D5W 900 MG/50 ML] 900 mg Premix Bag 1 bag IV Q8H 08/05/20 12:30 Gentamicin 500 mg Sodium Chloride 0.9% [Normal Saline] 100 ml IV Q24H 08/05/20 19:31 VTE/DVT Education [RC] PER UNIT ROUTINE 08/05/20 19:32 Antiembolic Devices [RC] PER UNIT ROUTINE Sequential Compression Device [OM.PC] Routine - Plan Plan:: Tonya Santiago is a 19-year-old -0-2-2 female status post currently at PPD #3 with suspected endometritis * Patient improved from this afternoon. Not requiring any significant pain medication. * Regular diet * Vitals per unit routine * Ibuprofen and Tylenol for pain control as needed, oxycodone 5 mg as needed for breakthrough pain * Assist with breast-feeding as needed * Continue to monitor lochia * Continue with clindamycin 900 mg IV every 8 hours and gentamicin 5 mg/kg every 24 hours with the first dose of these antibiotics at 12:30 PM. * Saline lock IV for IV antibiotic access * Colace 100 mg twice daily for constipation * Anticipate discharge home in the morning of HD #2 if patient continues to with her symptoms and is afebrile with minimal fundal tenderness Costa Kaminski MD 9:31 PM 08/05/2020
[2020-08-06] MEDS: Clindamycin Phosphate in D5W 900 MG in Premix Bag 1 BAG IV SCH ×2 (05:08)
--- NOTE | 2020-08-06 08:22 | PCM.DCSUM1 ---
Discharge Summary - Hospital Course HPI Initial Comments: Admitted for presumed endometritis. Hospital day two feeling much better. No significant tenderness. No fevers or chills. Diagnosis: Stroke: No - Discharge Data Discharge Date: 08/06/20 Discharge Disposition: Home, Self-Care 01 Condition: Good - Referral to Home Health Primary Care Physician: Costa Kaminski MD - Patient Summary/Data Hospital Course: Admitted, IV antibiotics. Did well and pain significantly improved. No further fevers since admission. - Patient Instructions Diet: Usual Diet as Tolerated Activity: No Strenuous Activities Activity, Other: pelvic rest Driving: May Drive Today Showering/Bathing: May Shower Notify Provider of: Fever, Increased Pain, Swelling and Redness, Drainage, Nausea and/or Vomiting - Discharge Plan *PRESCRIPTION DRUG MONITORING PROGRAM REVIEWED*: No *COPY OF PRESCRIPTION DRUG MONITORING REPORT IN PATIENT MUNA: No Home Medications: Home Meds . [No Known Home Meds] 08/05/20 [History] Forms: ED Department Discharge Referrals: PCP,None [Ordering Only Provider] - - Discharge Summary/Plan Comment DC Time >30 min.: No - General Info Date of Service: 08/06/20 Functional Status: Reports: Pain Controlled - Review of Systems General: Reports: No Symptoms. Denies: Fever, Weakness, Fatigue, Malaise, Chills, Night Sweats HEENT: Reports: No Symptoms Pulmonary: Reports: No Symptoms Cardiovascular: Reports: No Symptoms Gastrointestinal: Reports: No Symptoms Genitourinary: Reports: No Symptoms Musculoskeletal: Reports: No Symptoms Skin: Reports: No Symptoms Neurological: Reports: No Symptoms Psychiatric: Reports: No Symptoms - Patient Data Vitals - Most Recent: Last Vital Signs Temp 36.9 C 08/06/20 05:05 Pulse 86 08/06/20 05:05 Resp 18 08/06/20 05:05 BP 119/70 08/06/20 05:05 Pulse Ox 99 08/06/20 05:05 Weight - Most Recent: 99.11 kg I&O - Last 24 hours: Intake & Output 08/05/20 08/06/20 08/06/20 22:59 06:59 14:59 Intake Total 1210 400 Balance 1210 400 MOLLY Results - Last 24 hrs: Microbiology 08/05/20 01:45 Aerobic Blood Culture - Preliminary Blood - Venous - Lab Draw NO GROWTH AFTER 1 DAY Anaerobic Blood Culture - Preliminary NO GROWTH AFTER 1 DAY 08/05/20 01:35 Aerobic Blood Culture - Preliminary Blood - Venous NO GROWTH AFTER 1 DAY Anaerobic Blood Culture - Preliminary NO GROWTH AFTER 1 DAY Med Orders - Current: Current Medications Acetaminophen (Acetaminophen 325 Mg Tab) 650 mg PO Q6H PRN PRN Reason: Pain/Fever Last Admin: 08/05/20 15:57 Dose: 650 mg Documented by: Docusate Sodium (Docusate Sodium 100 Mg Cap) 100 mg PO BID [facility] Last Admin: 08/05/20 20:32 Dose: 100 mg Documented by: Clindamycin Phosphate 900 mg/ (Premix) 50 mls @ 100 mls/hr IV Q8H [facility] Last Admin: 08/06/20 05:08 Dose: 100 mls/hr Documented by: Gentamicin Sulfate 500 mg/ (Sodium Chloride) 112.5 mls @ 112.5 mls/hr IV Q24H [facility] Last Admin: 08/05/20 13:27 Dose: 112.5 mls/hr Documented by: Ibuprofen (Ibuprofen 600 Mg Tab) 600 mg PO Q6H PRN PRN Reason: Pain Oxycodone HCl (Oxycodone 5 Mg Tab) 5 mg PO Q6H PRN PRN Reason: Breakthrough Pain Discontinued Medications Acetaminophen (Acetaminophen 325 Mg Tab) 650 mg PO NOW ONE Stop: 08/05/20 04:27 Last Admin: 08/05/20 04:34 Dose: 650 mg Documented by: Hydromorphone HCl (Hydromorphone 0.5 Mg/0.5 Ml Syringe) 0.5 mg IVPUSH ONETIME ONE Stop: 08/05/20 02:09 Last Admin: 08/05/20 02:35 Dose: 0.5 mg Documented by: Lactated Ringer's (Ringers, Lactated) 1,000 mls @ 100 mls/hr IV ASDIRECTED [facility] Last Admin: 08/05/20 02:35 Dose: 100 mls/hr Documented by: Piperacillin Sod/Tazobactam (Sod 4.5 gm/ Sodium Chloride) 100 mls @ 200 mls/hr IV ONETIME ONE Stop: 08/05/20 04:58 Last Admin: 08/05/20 04:34 Dose: 200 mls/hr Documented by: Magnesium Hydroxide (Magnesium Hydroxide 400 Mg/5 Ml Susp 30 Ml Cup) 30 ml PO ONETIME ONE Stop: 08/05/20 11:46 Last Admin: 08/05/20 12:40 Dose: 30 ml Documented by: - Exam General: Reports: Alert, Oriented HEENT: Reports: Pupils Equal, Pupils Reactive, EOMI, Mucous Membr. Moist/[place] Neck: Reports: Supple Lungs: Reports: Clear to Auscultation, Normal Respiratory Effort Cardiovascular: Reports: Regular Rate, Regular Rhythm GI/Abdominal Exam: Normal Bowel Sounds, Soft, Non-Tender, No Organomegaly, No Distention, No Abnormal Bruit, No Mass, Other (no fundal tenderness) (Female) Exam: Normal External Exam Rectal (Female) Exam: Normal Exam, Normal Rectal Tone Back Exam: Reports: Normal Inspection, Full Range of Motion Extremities: Normal Inspection, Normal Range of Motion, Non-Tender, No Pedal Edema, Normal Capillary Refill Skin: Reports: Warm, Dry, Intact Wound/Incisions: Reports: Healing Well Neurological: Reports: No New Focal Deficit Psy/Mental Status: Reports: Alert, Normal Affect, Normal Mood
[2020-08-06 08:52] VITALS: BP 117/72; PULSE 75
[2020-08-06] MEDS: Docusate Sodium 100 MG Cap PO SCH (09:59)
== END 2020-08-06 09:31 | disposition home or self-care (01) ==
LOC: JD.ED 00:50 → JD.MS 06:49
PROVIDERS: ADMIT Obstetrics & Gynecology; ATTEND Obstetrics & Gynecology
DX: O86.12 Endometritis following delivery (principal); Z91.018 Allergy to other foods; Z20.822 Contact with and (suspected) exposure to COVID-19
CPT/HCPCS: 0240U; 36415; 76857; 80053; 81003; 83605; 85025; 86140; 87040; 96365; 96375; 99285; A9270; J1170; J1580; J2543; J3490; J7120; 96366; 96367; 96376; G0378

== ENCOUNTER 2020-08-22 15:24 | Emergency (ER) | payer MEDICAID ==
[2020-08-22 15:57] VITALS: BP 100/53; PULSE 88
[2020-08-22] MEDS ORDERED: Amoxicillin/Clavulanate K 875-125 MG Tab PO ONE (16:58)
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
== END 2020-08-22 17:30 | disposition home or self-care (01) ==
LOC: JD.ED 15:24 → SUPCPDRO 15:24 → JD.ED 17:30
DX: N61.0 Mastitis without abscess (principal); E66.9 Obesity, unspecified; Z91.018 Allergy to other foods
CPT/HCPCS: 99283; A9270

== ENCOUNTER 2020-09-26 10:42 | Emergency (ER) | payer MEDICAID ==
[2020-09-26 11:19] VITALS: BP 106/83; PULSE 75
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
== END 2020-09-26 11:59 | disposition home or self-care (01) ==
LOC: JD.ED 10:42
DX: M25.551 Pain in right hip (principal); N64.4 Mastodynia; E66.9 Obesity, unspecified; Z68.35 Body mass index [BMI] 35.0-35.9, adult; Z91.018 Allergy to other foods
CPT/HCPCS: 99283

== ENCOUNTER 2021-03-14 10:38 | Emergency (ER) | payer MEDICAID ==
[2021-03-14 11:00] VITALS: BP 124/64; PULSE 91
== END 2021-03-14 14:15 | disposition home or self-care (01) ==
LOC: JD.ED 10:38
DX: O22.42 Hemorrhoids in pregnancy, second trimester (principal); Z91.018 Allergy to other foods; Z3A.14 14 weeks gestation of pregnancy
CPT/HCPCS: 76815; 76815-26; 99283-25; 99284

== ENCOUNTER 2021-03-21 10:07 | Emergency (ER) | payer MEDICAID ==
[2021-03-21 10:25] VITALS: BP 130/91; PULSE 85
[2021-03-21] MEDS ORDERED: Azithromycin 250 MG Tab PO ONE (10:45)
[2021-03-21 11:10] LABS: CORONAVIRUS COVID-19 NAA NEGATIVE (NEGATIVE)
== END 2021-03-21 11:15 | disposition home or self-care (01) ==
LOC: JD.ED 10:07
DX: O99.512 Diseases of the respiratory system complicating pregnancy, second trimester (principal); J01.40 Acute pansinusitis, unspecified; J40 Bronchitis, not specified as acute or chronic; O99.212 Obesity complicating pregnancy, second trimester; E66.9 Obesity, unspecified; Z91.018 Allergy to other foods; Z79.899 Other long term (current) drug therapy; Z20.822 Contact with and (suspected) exposure to COVID-19; Z3A.15 15 weeks gestation of pregnancy
CPT/HCPCS: 0241U; 99283; A9270

== ENCOUNTER 2021-04-11 09:02 | Emergency (ER) | payer MEDICAID ==
[2021-04-11 09:22] VITALS: BP 121/60; PULSE 84
[2021-04-11 10:53] LABS: CORONAVIRUS COVID-19 NAA NEGATIVE (NEGATIVE)
== END 2021-04-11 11:45 | disposition critical access hospital (66) ==
LOC: JD.ED 09:02
DX: O99.512 Diseases of the respiratory system complicating pregnancy, second trimester (principal); J06.9 Acute upper respiratory infection, unspecified; Z91.018 Allergy to other foods; Z3A.18 18 weeks gestation of pregnancy; Z79.82 Long term (current) use of aspirin; Z20.822 Contact with and (suspected) exposure to COVID-19
CPT/HCPCS: 0241U; 99283

== ENCOUNTER 2021-08-21 13:12 | Inpatient (IN) | payer MEDICAID ==
[~2021-08-21 13:12] MED LIST changes: -ePHEDrine 50 MG/ML SDV ONE
[2021-08-21] MEDS ORDERED: Sodium Chloride 0.9% 10 ML Syringe FLUSH PRN (14:42)
[2021-08-21] MEDS ORDERED: Nalbuphine HCl 10 MG/ 1ML Amp IVPUSH PRN (14:42)
[2021-08-21] MEDS ORDERED: Ondansetron 4 MG/2 ML SDV IVPUSH PRN (14:42)
[2021-08-21] MEDS ORDERED: Oxytocin/Lactated Ringers 10 UNIT/1,000 ML BAG IV SCH ×2 (14:45→18:00)
[2021-08-21] MEDS: Lactated Ringers 1,000 ML IV SCH ×3 (14:58→19:44)
[2021-08-21] MEDS ORDERED: Bupivacaine/fentaNYL/NS 100 ML Bag EPIDUR PRN (18:59)
[2021-08-21] MEDS ORDERED: fentaNYL 100 MCG/2 ML SDV EPIDUR PRN (18:59)
[2021-08-21] MEDS ORDERED: diphenhydrAMINE 50 MG/ML SDV IVPUSH PRN (18:59)
[2021-08-21] MEDS ORDERED: ePHEDrine 50 MG/ML SDV IVPUSH PRN (18:59)
[2021-08-21] MEDS ORDERED: Sodium Chloride 0.9% 10 ML Syringe FLUSH SCH (21:00)
[2021-08-21] MEDS ORDERED: Witch Hazel Medicated Pads 40/Jar TOP PRN (23:57)
[2021-08-21] MEDS ORDERED: Benzocaine/Menthol 20%-0.5% Spray 78 GM Cannister TOP PRN (23:57)
[2021-08-21] MEDS ORDERED: Docusate Sodium 100 MG Cap PO PRN (23:57)
[2021-08-22] MEDS: Ibuprofen 600 MG Tab PO PRN ×2 (01:11→20:25)
[2021-08-22] MEDS: Acetaminophen 325 MG Tab PO PRN ×3 (08:47→17:53)
[2021-08-22 21:29] VITALS: BP 114/70; PULSE 75
== END 2021-08-22 23:20 | disposition home or self-care (01) | DRG 807 ==
LOC: JD.OBCHECK 13:12 → JD.OB 13:13 → JD.OBCHECK 14:43 → JD.OB 14:43 → OBSVTOIN 22:45 → JD.OB 22:46
PROVIDERS: ADMIT Obstetrics & Gynecology; ATTEND Obstetrics & Gynecology
PROC: 10E0XZZ Delivery of Products of Conception, External Approach (ICD-10-PCS; principal; 2021-08-21)
PROC: 10907ZC Drainage of Amniotic Fluid, Therapeutic from Products of Conception, Via Natural or Artificial Opening (ICD-10-PCS; 2021-08-21)
PROC: 3E0R3BZ Introduction of Anesthetic Agent into Spinal Canal, Percutaneous Approach (ICD-10-PCS; 2021-08-21)
PROC: 00HU33Z Insertion of Infusion Device into Spinal Canal, Percutaneous Approach (ICD-10-PCS; 2021-08-21)
DX: O13.4 Gestational [pregnancy-induced] hypertension without significant proteinuria, complicating childbirth (principal); Z37.0 Single live birth; Z3A.37 37 weeks gestation of pregnancy; O99.214 Obesity complicating childbirth; O69.81X0 Labor and delivery complicated by cord around neck, without compression, not applicable or unspecified; O99.344 Other mental disorders complicating childbirth; O99.02 Anemia complicating childbirth; D64.9 Anemia, unspecified; E66.9 Obesity, unspecified; F32.A Depression, unspecified; Z86.16 Personal history of COVID-19
CPT/HCPCS: 36415; 51702; 59025; 82565; 82570; 84156; 84450; 84460; 85027; 86592; 86850; 86900; 86901; 87081; 87641; A9270-GY; J2590; J3010; J3490; J7120

== ENCOUNTER 2021-10-24 18:18 | Emergency (ER) | payer MEDICAID ==
[2021-10-24 18:34] VITALS: BP 119/85; PULSE 100
[2021-10-24] MEDS ORDERED: diphenhydrAMINE 50 MG/ML SDV IM ONE (18:43)
[2021-10-24] MEDS ORDERED: Ketorolac 30 MG/ML SDV IM ONE (18:43)
[2021-10-24 19:34] LABS: CORONAVIRUS COVID-19 NAA POSITIVE (NEGATIVE)
== END 2021-10-24 20:03 | disposition home or self-care (01) ==
LOC: JD.ED 18:18 → SUPCPDRO 18:18 → JD.ED 20:03
DX: U07.1 COVID-19 (principal); I10 Essential (primary) hypertension; E66.9 Obesity, unspecified; Z68.38 Body mass index [BMI] 38.0-38.9, adult; Z86.16 Personal history of COVID-19; Z91.018 Allergy to other foods; Z79.899 Other long term (current) drug therapy
CPT/HCPCS: 0240U; 96372; 99284; J1200; J1885; 99282

== ENCOUNTER 2022-01-11 16:43 | Emergency (ER) | payer SELFPAY ==
[2022-01-11 18:08] VITALS: BP 117/76; PULSE 78
== END 2022-01-11 18:05 | disposition home or self-care (01) ==
LOC: JD.ED 16:43
DX: M54.50 Low back pain, unspecified (principal); I10 Essential (primary) hypertension; E66.9 Obesity, unspecified; Z68.33 Body mass index [BMI] 33.0-33.9, adult; Z91.018 Allergy to other foods
CPT/HCPCS: 99283

== ENCOUNTER 2022-08-05 10:30 | Emergency (ER) | payer MEDICAID ==
[2022-08-05 11:22] LABS: APPEARANCE,URINE CLEAR (Clear); BILIRUBIN,URINE NEGATIVE (Negative); COLOR,URINE YELLOW (Yellow); GLUCOSE,URINE NEGATIVE (Negative); KETONES,URINE NEGATIVE (Negative); LEUKOCYTE ESTERASE,URINE 1+ (Negative); NITRITE,URINE NEGATIVE (Negative); OCCULT BLOOD,URINE NEGATIVE (Negative); PROTEIN,URINE NEGATIVE (Negative); UROBILINOGEN,URINE 0.2 (0.2-1.0)
[2022-08-05] MEDS ORDERED: Ketorolac 30 MG/ML SDV IM ONE (11:25)
[2022-08-05] MEDS ORDERED: Orphenadrine 100 MG Tab.ER PO ONE (11:25)
[2022-08-05 11:43] LABS: BACTERIA,URINE MODERATE /hpf (FEW); MUCUS,URINE FEW /hpf (FEW); RBC,URINE 0-5 /hpf (0-5); SQUAMOUS EPITHELIAL CELLS,UR 20-30 /hpf (0-5)
[2022-08-05 14:22] VITALS: BP 118/77; PULSE 72
== END 2022-08-05 14:05 | disposition home or self-care (01) ==
LOC: SUPCPDRO 10:30 → JD.ED 10:30
DX: M54.50 Low back pain, unspecified (principal); I10 Essential (primary) hypertension; K21.9 Gastro-esophageal reflux disease without esophagitis; E66.9 Obesity, unspecified; Z91.018 Allergy to other foods; Z68.41 Body mass index [BMI] 40.0-44.9, adult; Z86.16 Personal history of COVID-19
CPT/HCPCS: 72100; 81001; 81025; 87086; 96372; 99283; A9270; J1885

== ENCOUNTER 2022-09-25 14:56 | Emergency (ER) | payer MEDICAID, OTHER ==
[2022-09-25] MEDS ORDERED: Sodium Chloride 0.9% 10 ML Syringe FLUSH PRN (15:17)
[2022-09-25] MEDS ORDERED: Metoclopramide 10 MG/2 ML SDV IVPUSH ONE (15:17)
[2022-09-25] MEDS ORDERED: Ketorolac 30 MG/ML SDV IVPUSH ONE (15:17)
[2022-09-25] MEDS ORDERED: diphenhydrAMINE 50 MG/ML SDV IVPUSH ONE (15:17)
[2022-09-25] MEDS ORDERED: HYDROmorphone 0.5 MG/0.5 ML Syringe IVPUSH ONE (16:32)
[2022-09-25 17:19] VITALS: BP 109/68; PULSE 81
== END 2022-09-25 17:19 | disposition home or self-care (01) ==
LOC: JD.ED 14:56
DX: S16.1XXA Strain of muscle, fascia and tendon at neck level, initial encounter (principal); G43.809 Other migraine, not intractable, without status migrainosus; E66.9 Obesity, unspecified; Z68.35 Body mass index [BMI] 35.0-35.9, adult; Z91.018 Allergy to other foods; Z86.16 Personal history of COVID-19; Z72.0 Tobacco use; V89.2XXA Person injured in unspecified motor-vehicle accident, traffic, initial encounter; Y92.410 Unspecified street and highway as the place of occurrence of the external cause
CPT/HCPCS: 72040; 96374; 96375; 99283; J1170; J1200; J1885; J2765; J3490

== ENCOUNTER 2022-09-29 11:15 | Emergency (ER) | payer SELFPAY ==
[2022-09-29] MEDS ORDERED: Sodium Chloride 0.9% 1,000 ML IV ONE (11:47)
[2022-09-29] MEDS ORDERED: Ketorolac 30 MG/ML SDV IVPUSH ONE (11:47)
[2022-09-29] MEDS ORDERED: diphenhydrAMINE 50 MG/ML SDV IVPUSH ONE (11:47)
[2022-09-29] MEDS ORDERED: Metoclopramide 10 MG/2 ML SDV IVPUSH ONE (11:47)
[2022-09-29 13:17] LABS: BASOPHILS PERCENT AUTO 0.5 % (0.0-1.0); EOSINOPHILS ABSOLUTE AUTO 0.1 K/mm3 (0.0-0.4); HEMOGLOBIN 14.4 gm/dl (12.0-16.0); IMMATURE GRAN ABSOLUTE AUTO 0.02 K/mm3 (0.00-0.05); IMMATURE GRAN PERCENT AUTO 0.3 % (0.0-0.4); LYMPHOCYTES ABSOLUTE AUTO 1.9 K/mm3 (1.0-4.8); LYMPHOCYTES PERCENT AUTO 24.2 % (24.0-44.0); MEAN CORPUSCULAR HGB CONC 32.7 g/dl (32.0-36.0); MEAN CORPUSCULAR VOLUME 85.6 fl (83.0-99.0); MEAN PLATELET VOLUME 9.9 fl (9.4-12.3); MONOCYTES ABSOLUTE AUTO 0.5 K/mm3 (0.0-0.8); MONOCYTES PERCENT AUTO 6.9 % (0.0-8.0); NEUTROPHILS ABSOLUTE AUTO 5.2 K/mm3 (1.8-7.7); NEUTROPHILS PERCENT AUTO 67.1 % (41.0-71.0); PLATELET COUNT,PLT 303 K/mm3 (150-400); RED BLOOD CELL COUNT 5.14 M/mm3 (4.10-5.30); WHITE BLOOD CELL COUNT,WBC 7.72 K/mm3 (3.9-11.3)
[2022-09-29 13:47] LABS: A/G RATIO 0.8 (1-2); ALANINE AMINOTRANSFERASE,ALT 26 U/L (14-59); ALBUMIN 3.7 g/dl (3.4-5.0); ALKALINE PHOSPHATASE 103 U/L (46-116); ANION GAP 10.9 (5-15); ASPARTATE AMNIOTRANSFERASE,AST 17 U/L (15-37); BILIRUBIN TOTAL 0.3 mg/dL (0.2-1.0); BLOOD UREA NITROGEN,BUN 13 mg/dL (7-18); BUN/CREATININE RATIO 16.3 (14-18); CALCIUM 9.4 mg/dL (8.5-10.1); CARBON DIOXIDE,CO2 28 mEq/L (21-32); CHLORIDE,CL 106 mEq/L (98-107); CREATININE 0.8 mg/dL (0.55-1.02); EST CRCL DRUG DOSING (CG) 98.41 mL/min; ESTIMATED GFR 106 mL/min (>60); GLUCOSE RANDOM 100 mg/dL (70-99); MAGNESIUM 1.9 mg/dL (1.8-2.4); POTASSIUM,K 3.9 mEq/L (3.5-5.1); PROTEIN TOTAL,TP 8.3 g/dl (6.4-8.2); SODIUM,NA 141 mEq/L (136-145)
[2022-09-29 13:54] LABS: C-REACTIVE PROTEIN < 0.2 mg/dL (<1.0)
[2022-09-29] MEDS ORDERED: Dexamethasone 10 MG/ML SDV IVPUSH ONE (15:12)
[2022-09-29 15:58] VITALS: BP 118/74; PULSE 74
== END 2022-09-29 15:38 | disposition home or self-care (01) ==
LOC: JD.ED 11:15
DX: G43.909 Migraine, unspecified, not intractable, without status migrainosus (principal); I10 Essential (primary) hypertension; K21.9 Gastro-esophageal reflux disease without esophagitis; E66.9 Obesity, unspecified; Z68.41 Body mass index [BMI] 40.0-44.9, adult; Z91.018 Allergy to other foods; Z86.16 Personal history of COVID-19; Z20.822 Contact with and (suspected) exposure to COVID-19
CPT/HCPCS: 36415; 80053; 83735; 85025; 86140; 87635; 87804; 87807; 96361; 96374; 96375; 99283; J1100; J1200; J1885; J2765; J7030; 99282; U0002

== ENCOUNTER 2022-10-22 08:46 | Emergency (ER) | payer SELFPAY ==
[2022-10-22] MEDS ORDERED: Dextrose 5%-0.9% NaCl 1,000 ML IV SCH (09:15)
[2022-10-22 09:46] LABS: BASOPHILS PERCENT AUTO 0.7 % (0.0-1.0); EOSINOPHILS ABSOLUTE AUTO 0.2 K/mm3 (0.0-0.4); EOSINOPHILS PERCENT AUTO 3.6 % (0.0-6.0); HEMATOCRIT 47.6 % (37.0-47.0); HEMOGLOBIN 15.7 gm/dl (12.0-16.0); IMMATURE GRAN ABSOLUTE AUTO 0.01 K/mm3 (0.00-0.05); IMMATURE GRAN PERCENT AUTO 0.2 % (0.0-0.4); LYMPHOCYTES ABSOLUTE AUTO 2.3 K/mm3 (1.0-4.8); LYMPHOCYTES PERCENT AUTO 40.1 % (24.0-44.0); MEAN CORPUSCULAR HEMOGLOBIN 28.1 pg (28.0-32.0); MEAN CORPUSCULAR VOLUME 85.3 fl (83.0-99.0); MEAN PLATELET VOLUME 10.3 fl (9.4-12.3); MONOCYTES ABSOLUTE AUTO 0.5 K/mm3 (0.0-0.8); MONOCYTES PERCENT AUTO 8.3 % (0.0-8.0); NEUTROPHILS ABSOLUTE AUTO 2.7 K/mm3 (1.8-7.7); NEUTROPHILS PERCENT AUTO 47.1 % (41.0-71.0); PLATELET COUNT,PLT 251 K/mm3 (150-400); RED BLOOD CELL COUNT 5.58 M/mm3 (4.10-5.30); WHITE BLOOD CELL COUNT,WBC 5.79 K/mm3 (3.9-11.3)
[2022-10-22 09:47] LABS: CORONAVIRUS COVID-19 NAA NEGATIVE (NEGATIVE); INFLUENZA A NAA NEGATIVE (NEGATIVE); RESPIRATORY SYNCYTIAL VIR NAA NEGATIVE (NEGATIVE)
[2022-10-22 10:08] LABS: A/G RATIO 0.8 (1-2); ANION GAP 14.8 (5-15); BILIRUBIN TOTAL 0.4 mg/dL (0.2-1.0); BUN/CREATININE RATIO 13.8 (14-18); CALCIUM 9.7 mg/dL (8.5-10.1); CREATININE 0.8 mg/dL (0.55-1.02); EST CRCL DRUG DOSING (CG) 97.57 mL/min; POTASSIUM,K 3.8 mEq/L (3.5-5.1)
[2022-10-22 10:20] LABS: PROTEIN TOTAL,TP 9.3 g/dl (6.4-8.2)
[2022-10-22 10:44] VITALS: BP 108/70; PULSE 75
== END 2022-10-22 10:44 | disposition home or self-care (01) ==
LOC: JD.ED 08:46
DX: J40 Bronchitis, not specified as acute or chronic (principal); J06.9 Acute upper respiratory infection, unspecified; I10 Essential (primary) hypertension; E66.9 Obesity, unspecified; K21.9 Gastro-esophageal reflux disease without esophagitis; Z20.822 Contact with and (suspected) exposure to COVID-19; Z91.018 Allergy to other foods; Z68.39 Body mass index [BMI] 39.0-39.9, adult
CPT/HCPCS: 0241U; 36415; 71045; 80053; 85025; 86140; J7042; 99284

== ENCOUNTER 2023-03-01 19:04 | Emergency (ER) | payer SELFPAY ==
[2023-03-01] MEDS ORDERED: Sodium Chloride 0.9% 10 ML Syringe FLUSH PRN (19:39)
[2023-03-01] MEDS ORDERED: Aluminum Hydroxide/Magnesium Hydroxide/Simethicone Susp 30 ML Cup PO ONE (19:41)
[2023-03-01] MEDS ORDERED: Famotidine 20 MG Tab PO ONE (19:41)
[2023-03-01] MEDS ORDERED: Sodium Chloride 0.9% 1,000 ML IV SCH (19:45)
[2023-03-01 20:05] LABS: BASOPHILS PERCENT AUTO 0.5 % (0.0-1.0); EOSINOPHILS ABSOLUTE AUTO 0.1 K/mm3 (0.0-0.4); EOSINOPHILS PERCENT AUTO 1.4 % (0.0-6.0); HEMATOCRIT 44.6 % (37.0-47.0); HEMOGLOBIN 14.8 gm/dl (12.0-16.0); IMMATURE GRAN ABSOLUTE AUTO 0.01 K/mm3 (0.00-0.05); IMMATURE GRAN PERCENT AUTO 0.2 % (0.0-0.4); LYMPHOCYTES PERCENT AUTO 33.6 % (24.0-44.0); MEAN CORPUSCULAR HEMOGLOBIN 28.4 pg (28.0-32.0); MEAN CORPUSCULAR HGB CONC 33.2 g/dl (32.0-36.0); MEAN CORPUSCULAR VOLUME 85.4 fl (83.0-99.0); MEAN PLATELET VOLUME 10.9 fl (9.4-12.3); MONOCYTES ABSOLUTE AUTO 0.4 K/mm3 (0.0-0.8); MONOCYTES PERCENT AUTO 7.6 % (0.0-8.0); NEUTROPHILS ABSOLUTE AUTO 3.3 K/mm3 (1.8-7.7); NEUTROPHILS PERCENT AUTO 56.7 % (41.0-71.0); PLATELET COUNT,PLT 221 K/mm3 (150-400); RED BLOOD CELL COUNT 5.22 M/mm3 (4.10-5.30); WHITE BLOOD CELL COUNT,WBC 5.81 K/mm3 (3.9-11.3)
[2023-03-01 20:26] LABS: A/G RATIO 0.9 (1-2); ALBUMIN 3.9 g/dl (3.4-5.0); ANION GAP 15.6 (5-15); BILIRUBIN TOTAL 0.4 mg/dL (0.2-1.0); BUN/CREATININE RATIO 18.9 (14-18); CALCIUM 9.3 mg/dL (8.5-10.1); CREATININE 0.9 mg/dL (0.55-1.02); EST CRCL DRUG DOSING (CG) 83.23 mL/min; POTASSIUM,K 3.6 mEq/L (3.5-5.1); PROTEIN TOTAL,TP 8.3 g/dl (6.4-8.2)
[2023-03-01] MEDS ORDERED: Sodium Chloride 0.9% 1,000 ML IV ONE (21:26)
[2023-03-01 21:49] LABS: APPEARANCE,URINE CLEAR (Clear); BILIRUBIN,URINE 1+ (Negative); COLOR,URINE YELLOW (Yellow); GLUCOSE,URINE NEGATIVE (Negative); KETONES,URINE 1+ (Negative); LEUKOCYTE ESTERASE,URINE NEGATIVE (Negative); NITRITE,URINE NEGATIVE (Negative); OCCULT BLOOD,URINE TRACE-INTACT (Negative); PROTEIN,URINE NEGATIVE (Negative)
[2023-03-01 22:00] LABS: BACTERIA,URINE FEW /hpf (FEW); MUCUS,URINE FEW /hpf (FEW); RBC,URINE 0-5 /hpf (0-5); SQUAMOUS EPITHELIAL CELLS,UR 0-5 /hpf (0-5); WBC,URINE 0-5 /hpf (0-5)
[2023-03-01 22:59] VITALS: BP 108/56; PULSE 68
== END 2023-03-01 22:35 | disposition home or self-care (01) ==
LOC: JD.ED 19:04
DX: K29.70 Gastritis, unspecified, without bleeding (principal); K52.9 Noninfective gastroenteritis and colitis, unspecified; I10 Essential (primary) hypertension; K21.9 Gastro-esophageal reflux disease without esophagitis; E66.9 Obesity, unspecified; Z91.048 Other nonmedicinal substance allergy status; Z91.018 Allergy to other foods; Z86.16 Personal history of COVID-19; Z68.37 Body mass index [BMI] 37.0-37.9, adult
CPT/HCPCS: 36415; 80053; 81001; 83690; 84703; 85025; 96360; 96361; 99284; 99284-25; A9270-GY; J3490; J7030

== ENCOUNTER 2023-03-09 10:28 | Emergency (ER) | payer SELFPAY ==
[2023-03-09 12:06] LABS: BASOPHILS PERCENT AUTO 0.7 % (0.0-1.0); EOSINOPHILS ABSOLUTE AUTO 0.1 K/mm3 (0.0-0.4); EOSINOPHILS PERCENT AUTO 1.6 % (0.0-6.0); HEMOGLOBIN 14.5 gm/dl (12.0-16.0); LYMPHOCYTES PERCENT AUTO 35.1 % (24.0-44.0); MEAN CORPUSCULAR HEMOGLOBIN 28.3 pg (28.0-32.0); MEAN CORPUSCULAR VOLUME 85.9 fl (83.0-99.0); MEAN PLATELET VOLUME 10.6 fl (9.4-12.3); MONOCYTES ABSOLUTE AUTO 0.4 K/mm3 (0.0-0.8); MONOCYTES PERCENT AUTO 7.2 % (0.0-8.0); NEUTROPHILS ABSOLUTE AUTO 3.2 K/mm3 (1.8-7.7); NEUTROPHILS PERCENT AUTO 55.4 % (41.0-71.0); PLATELET COUNT,PLT 237 K/mm3 (150-400); RED BLOOD CELL COUNT 5.12 M/mm3 (4.10-5.30); WHITE BLOOD CELL COUNT,WBC 5.69 K/mm3 (3.9-11.3)
[2023-03-09 12:39] LABS: A/G RATIO 0.8 (1-2); ALBUMIN 3.7 g/dl (3.4-5.0); ANION GAP 12.2 (5-15); BILIRUBIN TOTAL 0.4 mg/dL (0.2-1.0); BUN/CREATININE RATIO 22.9 (14-18); CALCIUM 9.2 mg/dL (8.5-10.1); CREATININE 0.7 mg/dL (0.55-1.02); EST CRCL DRUG DOSING (CG) 102.51 mL/min; POTASSIUM,K 4.2 mEq/L (3.5-5.1); PROTEIN TOTAL,TP 8.1 g/dl (6.4-8.2)
[2023-03-09 14:18] VITALS: BP 113/71; PULSE 67
== END 2023-03-09 14:18 | disposition home or self-care (01) ==
LOC: JD.ED 10:28
DX: R07.89 Other chest pain (principal); I10 Essential (primary) hypertension; E66.9 Obesity, unspecified; Z91.018 Allergy to other foods; Z91.048 Other nonmedicinal substance allergy status; Z86.16 Personal history of COVID-19; Z68.39 Body mass index [BMI] 39.0-39.9, adult
CPT/HCPCS: 36415; 71045; 71045-26; 80053; 84484; 85025; 93005; 93010; 99284; 99285